=== PATIENT | male | born 1950 | race Caucasian/White ===

== ENCOUNTER 2018-05-29 18:06 | Emergency (ER) | payer MEDICARE, OTHER, SELFPAY ==
[2018-05-29 18:07] VITALS: BP 120/70; PULSE 82; RESP 17; TEMP 37.2; O2SAT 97; BMI 28.5
[2018-05-29] MEDS: Morphine 4 MG/ML Syringe IV (19:08)
[2018-05-29] MEDS: Ondansetron 4 MG/2 ML Vial IV (19:08)
[2018-05-29 19:27] LABS: ALB/GLOB Ratio 0.6 RATIO (0.9-2.4); AST(SGOT) 13 U/L (15-37); Alanine Aminotransfer ALT/SGPT 16 U/L (16-61); Albumin, Serum 2.7 g/dL (3.2-5.0); Alkaline Phosphatase 80 U/L (45-117); Anion Gap 6 (5-15); BUN 16 mg/dL (7-18); BUN/Creat Ratio 16.7 RATIO (10-20); Calcium,Total 8.4 mg/dL (8.5-10.1); Chloride 103 mmol/L (98-107); Creatinine, Serum 0.96 mg/dL (0.70-1.30); EST Glomerular Filtration Rate 83 mL/min (>60); Est Glom Filt Rate - Afr Amer 100 mL/min (>60); Estimated Creatinine Clearance 74.99 ml/min; Globulin 4.6 g/dL (2.2-4.2); Glucose 82 mg/dL (74-106); Potassium 3.7 mmol/L (3.5-5.1); Protein, Total 7.3 g/dL (6.4-8.2); Sodium Level 137 mmol/L (136-145)
[2018-05-29 19:31] LABS: Bacteria 0 SEEN /hpf (None Seen); Color, Urine Yellow (Yellow); Glucose, Dipstick Normal (Normal); Ketone-Dipstick Negative (Negative); Leukocyte Esterase-Dipstick Negative /ul (Negative); Mucous, Urine 0 SEEN /hpf (<or=2+); Nitrite-Dipstick Negative (Negative); Occult Blood-Urine Negative /ul (Negative); Protein-Dipstick Negative (Negative); Red Blood Cells-Urine 0 SEEN /hpf (0-5); Squamous Epithelial Cells - UA 0 SEEN /hpf (0-5); Urine Bilirubin Dipstick Negative (Negative); Urine Clarity Clear (Clear); Urine Urobilinogen Normal (Normal); Urine pH 6.5 (5.0 - 8.0); White Blood Cells 0 SEEN /hpf (0-5)
--- NOTE | 2018-05-29 19:51 | ED.VISSUMM ---
- ER Visit Summary Date of Service: 05/29/18 Chief Complaint: Swelling upper extremities History of Present Illness: The patient is a 67 M who has had weakness and pain in his right and left shoulder and pain in his right and left hip. He is unable to elevate his arms above his chest. He denies paresthesia, anesthesia or motor weakness. He states he was recently at the [place] and they performed multiple tests. They believe he has rheumatoid arthritis. He is scheduled to see a steward/stewardess smoke room the first week of June. He denies headache, ocular, visual auditory symptoms. Denies problems with speech or swallowing. He denies cardiac or respiratory symptoms. He denies GI or symptoms. He has not been as active. Physical Examination: Vital signs are normal. HEENT exam is unremarkable. Heart is regular without murmur, gallop or rub. S1 and S2 are normal. Lungs are clear to auscultation with good movement of air bilaterally. Patient has dependent edema/pitting edema of the upper and lower extremity. There is pain with passive range of motion right and left shoulder and right left hip. There is no effusion of the right or left wrist or digits (fingers and thumb bilaterally). There is mild edema of the lower extremities. There is no effusion of his knee or ankle. Patient is alert and oriented ?3. Motor is 5 over 5. Sensory is intact. DTRs are symmetric with no clonus or Babinski sign. Cranial 2 through 12 are intact. Cerebellar testing is normal. Test Results: Comprehensive metabolic panel is marked for calcium of 8.4 and albumin 2.7. Calcium is normal once corrected for low albumin. UA is unremarkable with no proteinuria or hematuria. Emergency Department Course and Treatment: Concern patient has dependent edema. Will obtain conference of metabolic panel to assess albumin and BUN and creatinine. UA was obtained to determine if there is any proteinuria or hematuria indicating renal disease. Treatment Plan: Contact [place] for appointment sooner with steward/stewardess smoke room. and patient requested position in area. He was referred to Dr. Betito Abarca. Disposition: Discharged home with opiate analgesia Impression: 1. Bilateral shoulder and hip pain uncertain etiology 2. Proximal muscle weakness uncertain etiology 3. Dependent edema upper and lower extremities This note was generated with [employer]ation software. It may contain incorrect words, spelling, and punctuation that were not noted in review of the chart prior to signing ED Disposition - Plan for ED Patient: Disposition: Home or Assisted Living Chief Complaint: Edema Instructions: ED Lymphedema Prescriptions: Oxycodone HCl/Acetaminophen [Percocet 5/325] 1 tab PO Q6H PRN PRN 5 Days #20 tab PRN Reason: Pain Referrals: [facility] [Primary Care Provider] - Betito Abarca MD [STAFF PHYSICIAN] - 3-5 Days
--- NOTE | 2018-05-29 20:04 | ED.DCSUM_ITS ---
- ER Visit Summary Date of Service: 05/29/18 Chief Complaint: Swelling upper extremities History of Present Illness: The patient is a 67 M who has had weakness and pain in his right and left shoulder and pain in his right and left hip. He is unable to elevate his arms above his chest. He denies paresthesia, anesthesia or motor weakness. He states he was recently at the [place] and they performed multiple tests. They believe he has rheumatoid arthritis. He is scheduled to see a four corner former machine operator the first week of June. He denies headache, ocular, visual auditory symptoms. Denies problems with speech or swallowing. He denies cardiac or respiratory symptoms. He denies GI or symptoms. He has not been as active. Physical Examination: Vital signs are normal. HEENT exam is unremarkable. Heart is regular without murmur, gallop or rub. S1 and S2 are normal. Lungs are clear to auscultation with good movement of air bilaterally. Patient has dependent edema/pitting edema of the upper and lower extremity. There is pain with passive range of motion right and left shoulder and right left hip. There is no effusion of the right or left wrist or digits (fingers and thumb bilaterally). There is mild edema of the lower extremities. There is no effusion of his knee or ankle. Patient is alert and oriented ?3. Motor is 5 over 5. Sensory is intact. DTRs are symmetric with no clonus or Babinski sign. Cranial 2 through 12 are intact. Cerebellar testing is normal. Test Results: Comprehensive metabolic panel is marked for calcium of 8.4 and albumin 2.7. Calcium is normal once corrected for low albumin. UA is unremarkable with no proteinuria or hematuria. Emergency Department Course and Treatment: Concern patient has dependent edema. Will obtain conference of metabolic panel to assess albumin and BUN and creatinine. UA was obtained to determine if there is any proteinuria or hematuria indicating renal disease. Treatment Plan: Contact [place] for appointment sooner with four corner former machine operator. and patient requested position in area. He was referred to Dr. Betito Abarca. Disposition: Discharged home with opiate analgesia Impression: 1. Bilateral shoulder and hip pain uncertain etiology 2. Proximal muscle weakness uncertain etiology 3. Dependent edema upper and lower extremities This note was generated with [employer] software. It may contain incorrect words, spelling, and punctuation that were not noted in review of the chart prior to signing ED Disposition - Plan for ED Patient: Disposition: Home or Assisted Living Chief Complaint: Edema Instructions: ED Lymphedema Prescriptions: Oxycodone HCl/Acetaminophen [Percocet 5/325] 1 tab PO Q6H PRN PRN 5 Days #20 tab PRN Reason: Pain Referrals: [facility] [Primary Care Provider] - Betito Abarca MD [STAFF PHYSICIAN] - 3-5 Days
[2018-05-29 20:07] VITALS: PULSE 88; RESP 16; O2SAT 100
[2018-05-29 20:16] VITALS: BP 136/80; PULSE 89; RESP 16; O2SAT 100
== END 2018-05-29 20:18 | disposition home or self-care (01) ==
PROVIDERS: Emergency Provider Emergency Medicine
DX: M25.512 Pain in left shoulder (principal); M25.511 Pain in right shoulder; M25.552 Pain in left hip; M25.551 Pain in right hip; R53.1 Weakness; R60.0 Localized edema
CPT/HCPCS: 80053; 81001; 96374; 96375; 99283; A4216; J2405

== ENCOUNTER 2019-06-01 10:20 | Emergency (ER) | payer MEDICARE, OTHER, SELFPAY ==
[2019-06-01 10:21] VITALS: BP 134/78; PULSE 89; RESP 17; TEMP 36.6; O2SAT 96; BMI 29.9
--- NOTE | 2019-06-01 10:49 | ED.DCSUM_ITS ---
History of Present Illness Chief Complaint: Rash Informant: Patient Onset: Days - 5 Context: Gradual Onset Timing: Continuous Narrative: Patient is a 68-year-old male with history of rheumatoid arthritis presenting with a rash to his head. It has been present for 5 days. It is painful. It started to get closer to his left eye which is why he came to the emergency room. Patient suspects it is shingles. He started taking prednisone yesterday which he already had at home. He denies any vision changes but notes that his left eye is been watery. He denies any fever or chills. Patient denies any other complaints at this time. 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 Past Medical History - Allergies and Home Meds Allergies/Adverse Reactions: Allergies No Known Allergies Allergy (Verified 06/01/19 10:21) Primary Care Physician: [facility] [Primary Care Provider] - Past Medical History: - - RA Surgical History: - - back Lives: Spouse/ Significant Other Smoking Status: Never smoker Review of Systems All systems negative except as indicated Eyes: Reports: - - watery left eye Skin: Reports: Rash - left head and forehead Physical Exam Vital Signs/Narrative: Vital Signs Temp Pulse Resp BP Pulse Ox 06/01/19 10:21 97.9 F 89 17 134/78 H 96 Inital Vital Signs reviewed: Yes General: Well nourished, Well developed, No Acute Distress Head: Normocephalic, Atraumatic Eyes: Perrl, EOMI, - - Slit-lamp exam performed with floor seen, patient had uptake at the 5 o'clock position over the iris of the left eye in a clustered pattern 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, no flare appreciated ENT: Moist mucous membranes, No rhinorrhea Neck: Supple, Nontender Cardiovascular: Regular rate, Regular rhythm, No murmurs Respiratory: No distress, CTA bilaterally, Chest nontender Abdomen: Soft, Nontender, Nondistended, Normal bowel sounds Back: Nontender, Normal Inspection Extremities: Nontender, No edema Skin: Normal color, - - Vesicular rash on the left scalp extending from the vertex down to just above the left eyebrow, some of the lesions are scabbed over?this is consistent with shingles Neurological: Alert, Oriented x3, Cranial nerves II-XII grossly intact, Normal Strength, Normal Sensation Psychological: Normal affect, Normal Mood Diagnostic/Tx/Re-eval - Medical Decision Making Valuate for rash as well as water in his left eye. Rashes consistent with shingles. Eye exam with floor seen and slit-lamp does have uptake which is 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s/vesicles. Patient's vision corrected is OS 20/30 and OD 20/25. Discussed with ophthalmology on-call, Dr. Murry who recommends starting patient on valacyclovir as well as azithromycin ointment as well as seen her in the office tomorrow for repeat eye exam to rule out iritis. Patient is agreeable with this. He is given first dose of medications in the em ergency room. Patient is counseled on signs and symptoms requiring return to the emergency room. Patient verbalizes agreement and understand this plan. Patient discharged home in stable and improved condition. ED Disposition - Plan for ED Patient: Disposition: Home or Assisted Living Diagnosis: Shingles rash, Corneal abnormality Instructions: Shingles (Herpes Zoster) Prescriptions: Gabapentin [Neurontin] 300 mg PO BID PRN #20 cap PRN Reason: Pain Score 1-10/10 Prescription Printed Valacyclovir HCl [Valacyclovir] 1,000 mg PO TID #21 tab Prescription Printed Referrals: [facility] [Primary Care Provider] - Annamaria Murry MD [STAFF PHYSICIAN] - Additional Instructions: It is very important that you follow-up with ophthalmology tomorrow for repeat eye exam. Apply ointment to your left eye every 2 hours while awake. Take other medications as prescribed. Return if you have any worsening symptoms.
[2019-06-01] MEDS: Fluorescein 1 MG STRIP 1 STRIP OPHTHALMIC (11:22)
[2019-06-01] MEDS: Acyclovir 800 MG Tablet PO (12:13)
== END 2019-06-01 12:21 | disposition home or self-care (01) ==
PROVIDERS: Emergency Provider Emergency Medicine
DX: B02.9 Zoster without complications (principal); H18.892 Other specified disorders of cornea, left eye; M06.9 Rheumatoid arthritis, unspecified
CPT/HCPCS: 99283

== ENCOUNTER 2020-04-26 15:42 | Observation (INO) | payer MEDICARE, OTHER, SELFPAY ==
[2020-04-26] VITALS (8 sets, daily range): BP systolic 114–139; BP diastolic 69–86; PULSE 60–90; RESP 14–23; TEMP 36.6–36.8; O2SAT 94–98; BMI 28.7; BMI 29.0
--- NOTE | 2020-04-26 16:10 | ED.VIS.GEN ---
History of Present Illness Chief Complaint: Shortness of Breath Informant: Patient, Significant Other Narrative: 69-year-old male with history of rheumatoid arthritis on methotrexate presenting with hypoxia from home. His is a cardiology nurse and was watching his pulse ox dipped into the 80s the night before last. When he talks or moves about his pulse ox will drop down to 90. His symptoms started 2-1/2 weeks ago with body aches all over his body. He thought it was his rheumatoid arthritis. He made appointments with the [place] however they did not test him for COVID?. He continued for the first 3 days to have body aches and then started to have fevers as high as 101.2 which respond to Tylenol and ibuprofen. He developed a cough without production of sputum. The fevers and the cough have been present at that time. He states he was tested on Thursday of the and got his result today. Given that he tested positive and he was hypoxic he presents for evaluation. He denies any chest pain except for when he takes a deep inspiration and he states in the center of his chest. He has been able to eat and drink although this is been slightly diminished. He is making stool and urine. Past Medical History - Allergies and Home Meds Allergies/Adverse Reactions: Allergies No Known Allergies Allergy (Verified 04/26/20 15:43) Prior records reviewed: Yes Past Medical History: - - Rheumatoid arthritis Surgical History: noncontributory, - - back Lives: Spouse/ Significant Other Smoking Status: Never smoker Alcohol: None Drugs: None - Family History Maternal Family History: Reports: - - Arthritis Paternal Family History: Reports: Heart Disease Review of Systems General: Reports: Fever, Malaise Eyes: Denies: Visual changes - bilaterally, Diplopia ENT: Denies: Rhinorrhea, Sore throat Cardiovascular: Reports: Chest pain - With deep inspiration. Denies: Palpitations Respiratory: Reports: Dyspnea, Cough, Dyspnea on exertion. Denies: Sputum Gastrointestinal: Reports: Diarrhea - Lightly loose stools. Denies: Abdominal pain, Nausea, Vomiting Genitourinary: Denies: Dysuria, Hematuria Musculoskeletal: Reports: Myalgias, Arthralgias, Neck pain Skin: Denies: Rash, Abscess Neurological: Denies: Headache, Weakness Physical Exam Vital Signs/Narrative: Vital Signs Temp Pulse Resp BP Pulse Ox 04/26/20 16:00 78 14 98 09/03/20 15:43 97.8 F 90 18 123/86 H 97 General: Well nourished, Acute Distress Head: Normocephalic, Atraumatic Eyes: Perrl, EOMI ENT: Moist mucous membranes, No rhinorrhea Cardiovascular: Regular rate, Regular rhythm, No murmurs Respiratory: No distress, Chest nontender, - - Crackles are heard in all lung brown bilaterally. There is good air movement. No wheezing is present. Abdomen: Soft, Nontender, Nondistended Extremities: Nontender, No edema Skin: Normal color, No rash. Negative for: Cyanosis Neurological: Alert, Oriented x3 Psychological: Normal affect Diagnostic/Tx/Re-eval - Rhythm Strip Rhythm Strip: Sinus Rhythm Rate: 72 - EKG Initial EKG Interpretation: Sinus Rhythm, AV Block - First degree - Medical Decision Making 19-year-old male presenting with chief complaint of hypoxia. 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 She states that he was in the 80s last night. Here in the ER he is anywhere from 90-94 when talking. He describes central chest pain with deep inspiration but has no pain otherwise. He has continued fevers over the last couple of weeks at home which do respond to Tylenol and ibuprofen. He did test positive for COVID?19. It does seem like his had a extended course of symptoms. His lab work-up was fairly normal other than an elevated d-dimer. CTA shows groundglass opacities consistent with COVID?19. He is sinus rhythm with first-degree AV block. There is no signs of ischemia. Given his O2 sats less than 94 and dropping into the low 90s and 80s with concurrent COVID?19 I do believe the patient needs to be admitted for further monitoring. Patient was amenable to this plan. Discussed with hospitalist who admit the patient for treatment. Impression: 1. COVID?19 2. Febrile illness 3. Hypoxia ED Disposition - Plan for ED Patient: Disposition: Acute Care [facility]
--- NOTE | 2020-04-26 16:45 | RAD_ITS ---
STUDY: X-RAY CHEST REASON FOR EXAM: Male, 69 years old. SOB COUGH FOR 2 WEEKS. WITH FEVER. LOW PULSE OX AT HOME PER . SENT BY PCP. TESTED POSITIVE FOR COVID TECHNIQUE: Single AP portable view of the chest. COMPARISON: None. FINDINGS: Moderate lung volumes. Mild patchy pulmonary opacities throughout the right lung and in the left base consistent with multifocal pneumonia. CT scan is recommended. No effusions are seen. Normal size heart. Normal mediastinum and hunter. Normal visualized pulmonary arteries. Normal visualized aortic arch and descending thoracic aorta. Normal visualized thoracic spine. Normal visualized ribs, clavicles, and shoulders. There is no demonstrated abnormality of the visualized soft tissue structures of the upper abdomen. RAD/Chest 1 View (Portable) IMPRESSION: Mild patchy pulmonary opacities throughout the right lung and in the left base consistent with multifocal pneumonia. CT scan is recommended. Electronically Signed: Michael Lorenzo MD at 17:00 EDT , Service support ,
[2020-04-26 16:48] LABS: Absolute Lymphocyte Count 1.25 X10^3/uL (0.83-4.51); Absolute Neutrophil Count 4.2 X10^3/uL (2.0-7.7); Basophil# 0.01 X10^3/uL; Basophil% 0.2 % (0-1); Eosinophil# 0.07 X10^3/uL; Eosinophils% 1.2 % (0-5); Hematocrit 40.5 % (40-54); Hemoglobin 13.7 g/dL (13.0-16.5); Lymphocyte # 1.25 X10^3/ul (4.0); Lymphocyte % 20.9 % (19-41); Mean Corp Hgb Conc 33.8 g/dL (32-36); Mean Corpuscular Hgb 32.5 pg (27.0-32.0); Mean Corpuscular Volume 96.2 fL (80-94); Mean Platelet Vol. 9.7 fl (6.2-12.0); Monocyte# 0.43 X10^3/uL; Monocyte% 7.2 % (0-10); NRBC Flagged by Analyzer 0 % (0-5); Neutrophil # 4.19 X10^3/uL (2.7-7.7); Neutrophil % 70.2 % (47-70); Platelet Count 257 K/mm3 (150-450); RBC Distribution Width CV 13.3 % (11.6-14.6); RBC Distribution Width SD 47.2 fl (35.1-43.9); Red Blood Count 4.21 M/mm3 (4.6-6.2)
[2020-04-26 17:20] LABS: ALB/GLOB Ratio 0.6 RATIO (0.9-2.4); AST(SGOT) 36 U/L (15-37); Alanine Aminotransfer ALT/SGPT 26 U/L (16-61); Albumin, Serum 2.7 g/dL (3.2-5.0); Alkaline Phosphatase 57 U/L (45-117); Anion Gap 6 (5-15); BUN 17 mg/dL (7-18); BUN/Creat Ratio 14.8 RATIO (10-20); Calcium,Total 8.3 mg/dL (8.5-10.1); Chloride 107 mmol/L (98-107); Creatinine, Serum 1.15 mg/dL (0.70-1.30); EST Glomerular Filtration Rate 67 mL/min (>60); Est Glom Filt Rate - Afr Amer 81 mL/min (>60); Estimated Creatinine Clearance 60.83 ml/min; Globulin 4.6 g/dL (2.2-4.2); Glucose 114 mg/dL (74-106); Potassium 4.3 mmol/L (3.5-5.1); Protein, Total 7.3 g/dL (6.4-8.2); Sodium Level 138 mmol/L (136-145)
[2020-04-26 18:04] LABS: D-Dimer Quantitative (DVT/PE) 1.58 FEU/ug/m (0.27-0.49)
--- NOTE | 2020-04-26 18:09 | CT_ITS ---
STUDY: CTA CHEST REASON FOR EXAM: Male, 69 years old. SOB,FEVER X 2 WEEKS,ELEVATED DDIMER RADIATION DOSAGE (If Supplied By Facility): CTDIvol = ( 13.18 ) mGy, DLP = ( 527.10 ) mGycm TECHNIQUE: The examination was performed with the intravenous administration of IV 100mL Isovue-370. Post-processing of the angiographic images was performed, with multiplanar reformation and 3D reconstruction. Individualized dose optimization techniques were used for this CT. COMPARISON: None. FINDINGS: Normal enhancement of the main pulmonary artery and right and left pulmonary arteries. Normal enhancement of the bilateral peripheral pulmonary arteries. There is no demonstrated pulmonary embolism. Normal thoracic aorta and visualized great vessels. There is no demonstrated aortic dissection. Normal heart and pericardium. Normal mediastinum. Normal hilar regions. Normal visualized trachea and bronchi. There is elevation of the right hemidiaphragm. Otherwise the lungs are well expanded. Bilateral widespread groundglass pulmonary infiltrates are seen primarily in the periphery of both lungs and worse on the right. Findings are consistent with nonspecific multifocal pneumonia. No effusions are seen. There are degenerative changes of thoracic spine. There are multiple gallstones. CT/CTA Chest W/WO Contrast IMPRESSION: Normal CTA chest examination, without a demonstrated pulmonary embolism or arterial dissection. There is nonspecific multifocal pneumonia worse on the right. Viral pneumonia is likely. Electronically Signed: Michael Lorenzo MD at 19:05 EDT , Service support ,
--- NOTE | 2020-04-26 19:32 | PCM.HP.STD ---
Problem List (1) Acute respiratory disease due to COVID-19 virus Status: Acute History of Present Illness Date of Admission: 04/26/20 Chief Complaint: Low oxygen saturation The patient is a 69 year old M with a significant history rheumatoid arthritis; and BPH who presents to the emergency department with low oxygen saturation. His who is a cardiology nurse checked patient oxygen saturation at home. His oxygen saturation at home on room air was about 84%. His symptoms started about 2 and half weeks ago with a muscle aches. He has so much a muscle ache to the point that he could not walk. In the last 3 days he developed nonproductive cough; shortness of breath and chest pain with taking deep breaths. At home he had a temperature of 101.2F but not within the last 24 hours.. He did a covid test on Thursday04/23/2020 and the results came back on the day of presentation. His PCP advised him to come to the emergency department. Emergent department doctor reports oxygen saturation of 90 to 94% while at the ED. Past Medical History Medical History: Medical History (Last Reviewed 04/26/20 @ 20:[address] Eren Byrd MD) Rheumatoid arthritis M06.9 Allergies No Known Allergies Allergy (Verified 04/26/20 15:43) Home Medications: Ambulatory Orders Medication Instructions Recorded Acetaminophen [Tylenol Extra 500 - 1,000 mg PO Q6H PRN PRN 04/26/20 Strength] Methotrexate 15 mg PO TU 04/26/20 Tamsulosin HCl [Flomax] 0.4 mg PO DAILY 04/26/20 Surgical History: - - back surgery Lives: Spouse/ Significant Other Smoking Status: Never smoker Tobacco Use: Non-smoker Alcohol: None Drugs: None - *Family History Maternal History Items: - - Arthritis Paternal History Items: Heart Disease Review of Systems Constitutional: Reports: Fever. Denies: Weight Change HEENT: Denies: Head Aches, Sinus Congestion, Sinus Drainage Cardiovascular: Reports: Chest Pain. Denies: Palpitations Respiratory: Reports: Cough, Shortness of Breath Gastrointestinal: Denies: Abdominal Pain, Nausea, Vomiting Genitourinary: Denies: Dysuria Musculoskeletal: Reports: Muscle pain. Denies: Joint Tenderness Skin: Denies: Rash, Wounds Neurological: Denies: Numbness, Tingling, Focal weakness Psychiatric: Denies: Anxiety, Depression, Homicidal Ideations, Suicidal Ideations Hematologic/ Lymphatic: Denies: Easy Bruising, Easy Bleeding VTE Information - Inpt Only VTE Present on Admission: No VTE Mechan Device Prophylaxis: None VTE Pharm Prophylaxis ordered?: Yes Patient Problems: Active and Suspected Problems (Last Updated 04/26/20 @ 20:[address] Eren Byrd MD) Acute respiratory disease due to COVID-19 virus (Acute) - Physical Exam Vitals/I&O's: Vital Signs Temp Pulse Resp BP Pulse Ox 97.8 F 60 17 139/73 H 97 04/26/20 15:43 04/26/20 18:37 04/26/20 18:37 04/26/20 18:37 04/26/20 18:37 Oxygen Delivery Method Room Air Weight: 90.718 kg Body Mass Index (BMI) 28.7 General: Alert, Oriented x3, Cooperative HEENT: Atraumatic, PERRLA, EOMI, Normocephalic Neck: Supple, No JVD, Negative Carotid Bruits Lungs: No rhonchi, No wheeze, Rales Cardiovascular: Regular rate, Normal S1, Normal S2, No murmurs Abdomen: Bowel Sounds Present, Soft, Non Tender Extremities: No edema, Capillary Refill Less than 3 Seconds Skin: No rashes, No breakdown Musculoskeletal: No Tenderness to Palpation of Joints or Extremities Neurological: Cranial nerves II-XII grossly intact Psych/Mental Status: Normal Affect, Appropriate Laboratory Results 04/26/20 16:37: WBC 6.0, RBC 4.21 L, Hgb 13.7, Hct 40.5, MCV 96.2 H, MCH 32.5 H, MCHC 33.8, RDW Std Deviation 47.2 H, RDW Coeff of Marty 13.3, Plt Count 257, MPV 9.7, Immature Gran % (Auto) 0.300, Neut % (Auto) 70.2 H, Lymph % (Auto) 20.9, [place] % (Auto) 7.2, Eos % (Auto) 1.2, Baso % (Auto) 0.2, Absolute Neuts (auto) 4.2, Absolute Lymphs (auto) 1.25, Nucleated RBC % 0 04/26/20 16:37: D-Dimer Quant (PE/DVT) 1.58 H* 04/26/20 16:37: Sodium 138, Potassium 4.3, Chloride 107, Carbon Dioxide 25.0, Anion Gap 6, BUN 17, Creatinine 1.15, Estim Creat Clear Calc 60.83, Est GFR (MDRD) Af Amer 81, Est GFR (MDRD) Non-Af 67, BUN/Creatinine Ratio 14.8, Glucose 114 H, Calcium 8.3 L, Total Bilirubin 0.30, AST 36, ALT 26, Alkaline Phosphatase 57, Troponin I < 0.015, Total Protein 7.3, Albumin 2.7 L, Globulin 4.6 H, Albumin/Globulin Ratio 0.6 L Current Medications Sodium Chloride 1,000 ml/ N/A 1,000 mls @ 45.359 mls/hr IV .[id number] [id number] Stop: 04/27/20 18:11 Last Admin: 04/26/20 19:22 Dose: 0.5 ml/kg/hr, 45.4 mls/hr Documented by: Assessment/Plan All Active Problems (Last Updated 04/26/20 @ 20:[address] Eren Byrd MD) Acute respiratory disease due to COVID-19 virus (Acute) The patient is a 69 year old M with a significant history rheumatoid arthritis; and BPH who presents emergency department with low oxygen saturation; muscle aches; no productive cough; fever but not in the last 24 hours; and chest pain with deep inspiration; reveals on presentation; who also had a positive COVID-19 test and with elevated d-dimer. SARS COVID-19 infection Patient was ambulated and also made to jog in his emergency department room. His lowest oxygen saturation with jogging in the emergency department room was 90%. Will observe patient at the [facility] Covid cohort unit on telemetry. Will check a pro calcitonin. Will check strep pneumonia antigen and Legionella urine antigen to rule out concomitant bacterial pneumonia Actual images of chest x-ray and chest CT was independently reviewed: It showed viral pattern pneumonia bilaterally but more prominent at the right lung. Pro-air PRN for shortness of breath. Dexamethasone p.o. daily ordered. Trend CBC and BMP. Tylenol for fever Mucinex for cough. Enhanced droplet precautions per cardiac protocol Flat [employer] Maker consult and infectious disease consult placed. Rheumatoid arthritis On home methotrexate BPH Flomax continued DVT prophylaxis Lovenox subcutaneous Per COVID protocol OBSV E&M: [id number] Initial observation care L3
--- NOTE | 2020-04-26 19:57 | EKG12_ITS ---
Test Reason : SOB Blood Pressure : / mmHG Vent. Rate : 072 BPM Atrial Rate : 072 BPM P-R Int : 224 ms QRS Dur : 106 ms QT Int : 402 ms P-R-T Axes : 033 -64 036 degrees QTc Int : 440 ms Sinus rhythm with 1st degree A-V block Left axis deviation Low Voltage QRS (Limb Leads) Poor R- wave Progression Abnormal ECG Confirmed by BIRD TEE, STEPHANIE ([id number]), multimedia editor AWILDA LINDO ([id number]) on 05/02/2020 10:23:03 AM Referred By: DAISY Confirmed By:STEPHANIE PANG MD
[2020-04-26] MEDS: dexAMETHasone 4 MG Tablet 6 MG PO (23:10)
[2020-04-26] MEDS: guaiFENesin 1,200 MG Tablet 1200 MG PO (23:10)
[2020-04-26] MEDS: Enoxaparin 30 MG/0.3 ML Syringe SC (23:11)
[2020-04-26 23:35] LABS: Procalcitonin 0.23 ng/mL (0.00-0.09)
[2020-04-27 03:32] VITALS: BP 144/81; PULSE 62; RESP 18; TEMP 36.6; O2SAT 94
[2020-04-27 03:55] LABS: Absolute Lymphocyte Count 0.61 X10^3/uL (0.83-4.51); Absolute Neutrophil Count 4.2 X10^3/uL (2.0-7.7); Eosinophil# 0.01 X10^3/uL; Eosinophils% 0.2 % (0-5); Hemoglobin 13.6 g/dL (13.0-16.5); Lymphocyte # 0.61 X10^3/ul (4.0); Lymphocyte % 12.3 % (19-41); Mean Corpuscular Hgb 32.5 pg (27.0-32.0); Mean Corpuscular Volume 95.5 fL (80-94); Mean Platelet Vol. 9.8 fl (6.2-12.0); Monocyte# 0.11 X10^3/uL; Monocyte% 2.2 % (0-10); NRBC Flagged by Analyzer 0 % (0-5); Neutrophil # 4.21 X10^3/uL (2.7-7.7); Neutrophil % 85.1 % (47-70); Platelet Count 275 K/mm3 (150-450); RBC Distribution Width CV 13.4 % (11.6-14.6); RBC Distribution Width SD 47.3 fl (35.1-43.9); Red Blood Count 4.19 M/mm3 (4.6-6.2)
[2020-04-27 04:00] VITALS: PULSE 60
[2020-04-27 04:09] LABS: Anion Gap 7 (5-15); BUN 16 mg/dL (7-18); BUN/Creat Ratio 15.8 RATIO (10-20); Calcium,Total 8.3 mg/dL (8.5-10.1); Chloride 104 mmol/L (98-107); Creatinine, Serum 1.01 mg/dL (0.70-1.30); EST Glomerular Filtration Rate 77 mL/min (>60); Est Glom Filt Rate - Afr Amer 94 mL/min (>60); Estimated Creatinine Clearance 69.27 ml/min; Glucose 142 mg/dL (74-106); Potassium 4.2 mmol/L (3.5-5.1); Sodium Level 136 mmol/L (136-145)
[2020-04-27 06:00] VITALS: BP 144/81; PULSE 74; RESP 13; TEMP 36.6; O2SAT 93
--- NOTE | 2020-04-27 07:41 | PCM.NTREPORT ---
Nutrition Therapy Report - History Nutrition Services has been consulted to:: Manage nutrient details of diet order Current diet / nutrition support order:: Regular diet - Anthropometric Measurements Height:: 5 ft 10 in Weight:: 91.943 kg Body Mass Index (BMI):: 29.0 - Relevant Labs Relevant Labs:: RBC 4.19 M/mm3 (4.6-6.2) L 04/27/20 03:38 MCV 95.5 fL (80-94) H 04/27/20 03:38 MCH 32.5 pg (27.0-32.0) H 04/27/20 03:38 RDW Std Deviation 47.3 fl (35.1-43.9) H 04/27/20 03:38 Neut % (Auto) 85.1 % (47-70) H 04/27/20 03:38 Lymph % (Auto) 12.3 % (19-41) L 04/27/20 03:38 Absolute Lymphs (auto) 0.61 X10^3/uL (0.83-4.51) L 04/27/20 03:38 D-Dimer Quant (PE/DVT) 1.58 FEU/ug/m (0.27-0.49) H* 04/26/20 16:37 Glucose 142 mg/dL (74-106) H 04/27/20 03:38 Calcium 8.3 mg/dL (8.5-10.1) L 04/27/20 03:38 Albumin 2.7 g/dL (3.2-5.0) L 04/26/20 16:37 Globulin 4.6 g/dL (2.2-4.2) H 04/26/20 16:37 Albumin/Globulin Ratio 0.6 RATIO (0.9-2.4) L 04/26/20 16:37 Procalcitonin 0.23 ng/mL (0.00-0.09) H 04/26/20 22:00 - Assessment Food / Nutrition-Related History:: Spoke w/ pt over telephone d/t pt in isolation d/t covid. 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 UBW: 93.18 kg - wt loss of 1.4% x 1 wk. Pt po intake to be established on ICU. Agreeable to ONS w/ meals for increased nutrition if consumed - does not want chocolate. Gluc likely elevated r/t steroid. - Nutrition Diagnosis Problem / Etiology / Signs & Symptoms (PES):: Pt with suboptimal po intake r/t SARS/Covid 19 infection AEB poor po intake and sig wt loss in last wk Evidence of Malnutrition Exists:: Yes Severe PCM:: Acute Illness - Nutrition Intervention Nutrition Prescription:: [id number] nani / 100-110 gm pro / day - Food / Nutrient Delivery Interventions Summary of nutrition intervention:: Will continue Regular diet. Will provide ONS at meals for increased nutrition if consumed. [ End ] Nutrition support ordered as / adjusted to:: Provide 1/2 cup ensure enlive w/ meals for increased nutrition if consumed Nutrition education provided?: No - MNT Monitoring Further MNT monitoring and evaluation required?: Yes MNT Follow-up in:: 3-5 days - please call RD/LD if questions or concerns at [phone]
[2020-04-27 07:44] VITALS: BMI 29.0
[2020-04-27 08:00] VITALS: PULSE 60
[2020-04-27] MEDS: dexAMETHasone 4 MG Tablet 6 MG PO (08:04)
[2020-04-27] MEDS: guaiFENesin 1,200 MG Tablet 1200 MG PO (08:04)
[2020-04-27] MEDS: Enoxaparin 30 MG/0.3 ML Syringe SC (08:04)
[2020-04-27] MEDS: Tamsulosin HCl 0.4 MG Capsule PO (08:04)
--- NOTE | 2020-04-27 08:28 | CON.PCM_ITS ---
Problem List (1) Acute respiratory disease due to COVID-19 virus Status: Acute (2) Rheumatoid arthritis Status: Acute (3) Methotrexate, snf, current use Status: Chronic Reason for Consult Date of Consultation: 04/27/20 Reason for Consultation: COVID-19 History of Present Illness: The patient is a 69 year old M, with past medical history listed below, who presented [facility] on 04/26/2020 secondary to progressive hypoxia. 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 Patient did have significant desaturation with ambulation while at home. Patient estimates that he has been sick for 14 to 20 days with body aches. Patient had initially a ttributed this to rheumatoid arthritis and had been seen at the OR. Patient continued to have high fevers as high as 101.2 ?F and was treated symptomatically with Tylenol and ibuprofen. Patient has had a dry cough. Patient eventually was tested for COVID-19 3 days ago and was told that this is positive. Patient has noted some slightly decreased appetite, but overall is still urinating and making stool normally. In the ER, patient was noted to be desaturating to 90% with talking and activity. Patient's blood pressure and heart rate were acceptable. Patient did have an elevated d-dimer and a CTA showed groundglass opacities bilaterally. EKG was relatively unremarkable. Patient was admitted to the COVID cohort unit for further evaluation. Since being admitted to the hospital, patient reports no subjective change in overall condition. Patient states that he does feel short of breath with activity, but feels strong enough to go home. Patient denies any history of previous lung disease. Patient did have a short smoking history when he was in [place], but is never been diagnosed with COPD. Patient denies a history of asthma. Patient has had some lower extremity edema, but does not believe this is significantly changed from his baseline. Patient has been taking his methotrexate. Review of systems otherwise negative from a constitutional, HEENT, respiratory, cardiovascular, GI, genitourinary, musculoskeletal, skin, neurologic, psychiatric and hematologic system unless stated above. Past Medical History Past Medical History (Chronic Problems): Chronic Problems (Last Reviewed 04/26/20 @ 20:[address] Eren Byrd MD) Methotrexate, snf, current use (Chronic) Medical History: Medical History (Last Reviewed 04/26/20 @ 20:[address] Eren Byrd MD) Rheumatoid arthritis M06.9 Allergies No Known Allergies Allergy (Verified 04/26/20 15:43) Home Medications: Ambulatory Orders Medication Instructions Recorded Acetaminophen [Tylenol Extra 500 - 1,000 mg PO Q6H PRN PRN 04/26/20 Strength] Methotrexate 15 mg PO TU 04/26/20 Tamsulosin HCl [Flomax] 0.4 mg PO DAILY 04/26/20 Surgical History: - - back surgery Lives: Spouse/ Significant Other Smoking Status: Never smoker Tobacco Use: Non-smoker Alcohol: None Drugs: None - *Family History Maternal History Items: - - Arthritis Paternal History Items: Heart Disease Review of Systems Gastrointestinal: Reports: - - No history of GI bleed Comment: See HPI Patient Problems: Active and Suspected Problems (Last Reviewed 04/26/20 @ 20:[address] Eren Byrd MD) Acute respiratory disease due to COVID-19 virus (Acute) Rheumatoid arthritis (Acute) Objective: All imaging was personally reviewed. CTA of the chest does show areas of bronchiectasis that is right-sided predominant along with bilateral scattered groundglass opacities. Patient does not have a previous pulmonary function test or echocardiogram available for review. - Physical Exam Vitals/I&O's: Vital Signs Temp Pulse Resp BP Pulse Ox 36.6 C 74 13 144/81 H 93 04/27/20 06:00 04/27/20 06:00 04/27/20 06:00 04/27/20 06:00 04/27/20 06:00 Oxygen Flow Rate (L/min) 3 Oxygen Delivery Method Nasal Cannula Weight: 91.943 kg Body Mass Index (BMI) 29.0 Intake and Output for Last 24 Hours 04/25/20 04/26/20 04/27/20 23:59 23:59 23:59 Intake Total 423.11 / 423.11 Output Total 250 / 250 Balance 423.11 / 423.11 -250 / -250 General: Alert, Oriented x3, Cooperative, No apparent distress, Well developed, Well nourished, - - Speaking in full sentences HEENT: Atraumatic, PERRLA, EOMI, Normocephalic, - - No scleral icterus or injection noted Oral: Moist Mucosa, No Gingival or Mucosal Lesions/ Ulcerations Neck: Supple, No JVD, No Nodes, Trachea Midline Lungs: No rhonchi, No wheeze, Diminished, Rales - Bilateral, - - Symmetric expansion Cardiovascular: Regular rate, Regular Rhythm, Normal S1, Normal S2, No murmurs, No rub noted, No Gallop Abdomen: Bowel Sounds Present, Soft, Non Tender, Non-Distended Extremities: No clubbing, No cyanosis, Edema - Trace lower extremity Skin: No rashes, No breakdown Musculoskeletal: No Tenderness to Palpation of Joints or Extremities Lymphatic: No Cervical, Supraclavicular, or Inguinal Adenopathy Neurological: Cranial nerves II-XII grossly intact, Neuro grossly intact, Motor Exam 5/5 strength throughout Psych/Mental Status: Alert and oriented to time, place, person, mood and affect Microbiology Past 72 Hours 04/27/20 03:18 Urine, Clean Catch Streptococcus pneumoniae Antigen (M - Final 04/27/20 03:18 Urine, Clean Catch Legionella Antigen - Final Laboratory Results 04/26/20 16:37: WBC 6.0, RBC 4.21 L, Hgb 13.7, Hct 40.5, MCV 96.2 H, MCH 32.5 H, MCHC 33.8, RDW Std Deviation 47.2 H, RDW Coeff of Marty 13.3, Plt Count 257, MPV 9.7, Immature Gran % (Auto) 0.300, Neut % (Auto) 70.2 H, Lymph % (Auto) 20.9, [place] % (Auto) 7.2, Eos % (Auto) 1.2, Baso % (Auto) 0.2, Absolute Neuts (auto) 4.2, Absolute Lymphs (auto) 1.25, Nucleated RBC % 0 04/26/20 16:37: D-Dimer Quant (PE/DVT) 1.58 H* 04/26/20 16:37: Sodium 138, Potassium 4.3, Chloride 107, Carbon Dioxide 25.0, Anion Gap 6, BUN 17, Creatinine 1.15, Estim Creat Clear Calc 60.83, Est GFR (MDRD) Af Amer 81, Est GFR (MDRD) Non-Af 67, BUN/Creatinine Ratio 14.8, Glucose 114 H, Calcium 8.3 L, Total Bilirubin 0.30, AST 36, ALT 26, Alkaline Phosphatase 57, Troponin I < 0.015, Total Protein 7.3, Albumin 2.7 L, Globulin 4.6 H, Albumin/Globulin Ratio 0.6 L 04/26/20 22:00: Procalcitonin 0.23 H 04/27/20 03:38: WBC 5.0, RBC 4.19 L, Hgb 13.6, Hct 40.0, MCV 95.5 H, MCH 32.5 H, MCHC 34.0, RDW Std Deviation 47.3 H, RDW Coeff of Marty 13.4, Plt Count 275, MPV 9.8, Immature Gran % (Auto) 0.200, Neut % (Auto) 85.1 H, Lymph % (Auto) 12.3 L, [place] % (Auto) 2.2, Eos % (Auto) 0.2, Baso % (Auto) 0.0, Absolute Neuts (auto) 4.2, Absolute Lymphs (auto) 0.61 L, Nucleated RBC % 0 04/27/20 03:38: Sodium 136, Potassium 4.2, Chloride 104, Carbon Dioxide 25.0, Anion Gap 7, BUN 16, Creatinine 1.01, Estim Creat Clear Calc 69.27, Est GFR (MDRD) Af Amer 94, Est GFR (MDRD) Non-Af 77, BUN/Creatinine Ratio 15.8, Glucose 142 H, Calcium 8.3 L Current Medications Acetaminophen (Tylenol) 650 mg PO Q6H PRN PRN PRN Reason: Pain Score 1-10/Temp > 100.7 F Albuterol Sulfate (Ventolin Hfa (Sp)) 1 puff INHALATION Q2H PRN PRN PRN Reason: SOB/WHEEZING [facility] Admin: 04/27/20 08:04 Dose: 6 mg Documented by: Enoxaparin Sodium (Lovenox) 30 mg SC BID [facility] Last Admin: 04/27/20 08:04 Dose: 30 mg Documented by: Guaifenesin (Mucinex) 1,200 mg PO BID [facility] Last Admin: 04/27/20 08:04 Dose: 1,200 mg Documented by: Melatonin (Melatonin) 3 mg PO QHS PRN PRN PRN Reason: INSOMNIA Methotrexate (Methotrexate) 15 mg PO [facility] [place]iscellaneous Information (Pocket Chamber) 1 each INHALATION PRN PRN PRN Reason: USE WITH VENTOLIN MDI Ondansetron HCl (Zofran) 4 mg IV Q8H PRN PRN PRN Reason: NAUSEA/VOMITING Sodium Chloride () 10 - 40 ml IV UD PRN PRN Reason: SALINE FLUSH Tamsulosin HCl (Flomax) 0.4 mg PO DAILY ИВАН Last Admin: 04/27/20 08:04 Dose: 0.4 mg Documented by: Clinical Impression(s) from Imaging Studies Chest X-Ray 04/26/20 16:45 IMPRESSION: Mild patchy pulmonary opacities throughout the right lung and in the left base consistent with multifocal pneumonia. CT scan is recommended. Electronically Signed: Michael Lorenzo MD at 17:00 EDT , Service support , Chest CTA 04/26/20 18:09 IMPRESSION: Normal CTA chest examination, without a demonstrated pulmonary embolism or arterial dissection. There is nonspecific multifocal pneumonia worse on the right. Viral pneumonia is likely. Electronically Signed: Michael Lorenzo MD at 19:05 EDT , Service support , Assessment/Plan All Active Problems (Last Reviewed 04/26/20 @ 20:[address] Eren Byrd MD) Acute respiratory disease due to COVID-19 virus (Acute) Rheumatoid arthritis (Acute) RECOMMENDATIONS: 1. Hold on Remdesivir and convalescent serum 2. Consider initiation of Eliquis therapy for 14 to 21 days, p.o. Decadron for 10 days, hold next methotrexate dose 3. Walking oximetry prior to discharge 4. Follow-up in our office in 3 to 4 weeks for PFT and to arrange repeat imaging 5. Supplemental oxygen if necessary IMPRESSIONS: 1. Acute hypoxic respiratory insufficiency secondary to COVID-19 Patient has classic symptoms of COVID-19 along with groundglass opacities on CT scan of the chest. Other differentials would include methotrexate toxicity, rheumatoid lung or atypical pneumonia. Patient does not have a history of previous respiratory illness. There is some data suggesting an increased risk for hypercoagulable complications following COVID-19. Recommend initiation of Eliquis therapy for the next 14 to 21 days. Patient should have repeat imaging in 4 to 6 weeks to ensure resolution of groundglass opacities. Patient should have a walking oximetry and supplemental oxygen can be provided in the short-term if necessary. However, given patient's current status and the fact that he has had symptoms for 2 weeks, patient can likely be discharged from a pulmonary perspective with outpatient follow-up. Okay to continue with symptomatic therapy for fever 2. Advanced age/methotrexate use/rheumatoid arthritis/BPH Complicates care, management, recovery and prognosis. Patient appears to be doing well on current therapy. Likely okay to continue from my perspective. Inpatient E&M: 77887 Init Hosp L2
[2020-04-27 09:41] VITALS: BP 128/51; PULSE 59; RESP 16; TEMP 36.4; O2SAT 95
--- NOTE | 2020-04-27 09:52 | DCINST_ITS ---
- Discharge Diagnoses Current Active Problems: Current Active and Chronic Problems (Last Reviewed 04/26/20 @ 20:[address] Eren Byrd MD) Acute respiratory disease due to COVID-19 virus (Acute) Rheumatoid arthritis (Acute) Methotrexate, assisted, current use (Chronic) You will use the following diet at home:: Regular Your food should be the consistency of: Regular Your liquids should be the consistency of: Regular/Thin Discharge Activity: Return to Normal Activity Call your doctor if you observe: Fever of 101 or Higher, Shortness of breath, Dizziness, Fainting spells, Swelling in the ankles, Chest pain, Increased palpitations (irregular heartbeat) Additional Instructions: Repeat CT chest in 4-6 weeks to make sure there is resolution of your lung findings. Follow-up with pulmonology in 3-4 weeks for PFTs Allergies/Adverse Reactions: Allergies No Known Allergies Allergy (Verified 04/26/20 15:43) Medications to take at Discharge Acetaminophen [Tylenol] 500 - 1,000 mg PO Q6H PRN PRN 04/26/20 Tamsulosin HCl [Flomax] 0.4 mg PO DAILY 04/26/20 Apixaban [Eliquis] 5 mg PO BID #42 tab 04/27/20 Dexamethasone [Decadron] 6 mg PO DAILYCM #15 tab 04/27/20 Methotrexate 15 mg PO TU #0 04/27/20 The following prescriptions were given: Dexamethasone [Decadron] 6 mg PO DAILYCM #15 tab Transmission Status: Pending to [facility] Apixaban [Eliquis] 5 mg PO BID #42 tab Transmission Status: Pending to [facility] Primary Care Physician: [facility] [Primary Care Provider] - Please follow up with your Primary Care Physician in: 3-5 days Test Results: Test results from this visit will be discussed in further detail at your follow- up appointment, if applicable. Please Follow Up With: Davidson Crowder MD When: 3-4 weeks
--- NOTE | 2020-04-27 11:18 | CASEMGMT ---
Pt to be sent home on Eliquis at discharge and med e-scribed to [facility] retail pharmacy. Call to Danyelle in pharmacy and she states that Eliquis card was applied at this time. Pt should only be on a 21 day dose at this time d/t COVID-19. Loni BENZ CM
--- NOTE | 2020-04-27 13:52 | DS.PCM_ITS ---
Discharge Date and Diagnosis Date of Admission: 04/26/20 Date of Discharge: 04/27/20 - Secondary Discharge Diagnosis Chronic Problems: Chronic Problems (Last Reviewed 04/26/20 @ 20:[address] Eren Byrd MD) Methotrexate, local intermodal truck driver, current use (Chronic) Hospital Course and Treatment Imaging Results: Clinical Impression(s) from Imaging Studies Chest X-Ray 04/26/20 16:45 IMPRESSION: Mild patchy pulmonary opacities throughout the right lung and in the left base consistent with multifocal pneumonia. CT scan is recommended. Electronically Signed: Michael Lorenzo MD at 17:00 EDT , Service support , Chest CTA 04/26/20 18:09 IMPRESSION: Normal CTA chest examination, without a demonstrated pulmonary embolism or arterial dissection. There is nonspecific multifocal pneumonia worse on the right. Viral pneumonia is likely. Electronically Signed: Michael Lorenzo MD at 19:05 EDT , Service support , Consults: Pulmonology Operations: None Procedures: None Summary of Care Provided: Per HPI: The patient is a 69 year old M with a significant history rheumatoid arthritis; and BPH who presents to the emergency department with low oxygen saturation. His who is a cardiology nurse checked patient oxygen saturation at home. His oxygen saturation at home on room air was about 84%. His symptoms started about 2 and half weeks ago with a muscle aches. He has so much a muscle ache to the point that he could not walk. In the last 3 days he developed nonproductive cough; shortness of breath and chest pain with taking deep breaths. At home he had a temperature of 101.2F but not within the last 24 hours.. He did a covid test on Thursday04/23/2020 and the results came back on the day of presentation. His PCP advised him to come to the emergency department. Emergent department doctor reports oxygen saturation of 90 to 94% while at the ED. Hospital Course: 1. COVID-19 [id number] male has been having symptoms for about 2-1/2 weeks presents to the hospital after he found out that he tested positive for COVID-19. He was not hypoxic, he desatted to 90% with activity in the ER. He was started on Decadron as well as Eliquis for symptom management and was feeling well today. He says that he had started feeling a little bit better over the last couple days compared to when he first started having symptoms. He had an ambulatory pulse ox test today which demonstrate that he did not need oxygen on discharge. Discussed with him and his that he should not take his next methotrexate dose on this Thursday and should resume it on the following Thursday. He will take Eliquis for about 21 days and dexamethasone for 10 days. I discussed the plan for discharge with him and his , and they both expressed understanding of the risks and benefits of discharge today. Also discussed the need for quarantine for him and people who have come in contact with him. 2. Rheumatoid arthritis, BPH all chronic medical conditions which complicate care. His home medications were continued where appropriate - Physical Exam Vitals/I&O's: Vital Signs Temp Pulse Resp BP Pulse Ox 97.5 F L 59 L 16 128/51 H 95 04/27/20 09:41 04/27/20 09:41 04/27/20 09:41 04/27/20 09:41 04/27/20 09:41 Oxygen Flow Rate (L/min) 3 Oxygen Delivery Method Room Air Weight: 202 lb 11.194 oz Body Mass Index (BMI) 29.0 Intake and Output for Last 24 Hours 04/25/20 04/26/20 04/27/20 23:59 23:59 23:59 Intake Total 423.11 / 423.11 Output Total 250 / 250 Balance 423.11 / 423.11 -250 / -250 General: Alert, Oriented x3, Cooperative, No apparent distress HEENT: Atraumatic, PERRLA, EOMI, Normocephalic Oral: Moist Mucosa Neck: Supple, No JVD Lungs: Normal air movement, Diminished, Rales Cardiovascular: Regular rate, Regular Rhythm, Normal S1, Normal S2, No murmurs Abdomen: Soft, Non Tender Extremities: No edema, Capillary Refill Less than 3 Seconds Skin: No rashes, No breakdown Neurological: Neuro grossly intact, Sensory exam intact to light touch and pain Psych/Mental Status: Normal Affect, Appropriate Microbiology Past 72 Hours 04/27/20 03:18 Urine, Clean Catch Streptococcus pneumoniae Antigen (M - Final 04/27/20 03:18 Urine, Clean Catch Legionella Antigen - Final Laboratory Results 04/26/20 16:37: WBC 6.0, RBC 4.21 L, Hgb 13.7, Hct 40.5, MCV 96.2 H, MCH 32.5 H, MCHC 33.8, RDW Std Deviation 47.2 H, RDW Coeff of Marty 13.3, Plt Count 257, MPV 9.7, Immature Gran % (Auto) 0.300, Neut % (Auto) 70.2 H, Lymph % (Auto) 20.9, [place] % (Auto) 7.2, Eos % (Auto) 1.2, Baso % (Auto) 0.2, Absolute Neuts (auto) 4.2, Absolute Lymphs (auto) 1.25, Nucleated RBC % 0 04/26/20 16:37: D-Dimer Quant (PE/DVT) 1.58 H* 04/26/20 16:37: Sodium 138, Potassium 4.3, Chloride 107, Carbon Dioxide 25.0, Anion Gap 6, BUN 17, Creatinine 1.15, Estim Creat Clear Calc 60.83, Est GFR (MDRD) Af Amer 81, Est GFR (MDRD) Non-Af 67, BUN/Creatinine Ratio 14.8, Glucose 114 H, Calcium 8.3 L, Total Bilirubin 0.30, AST 36, ALT 26, Alkaline Phosphatase 57, Troponin I < 0.015, Total Protein 7.3, Albumin 2.7 L, Globulin 4.6 H, Albumin/Globulin Ratio 0.6 L 04/26/20 22:00: Procalcitonin 0.23 H 04/27/20 03:38: WBC 5.0, RBC 4.19 L, Hgb 13.6, Hct 40.0, MCV 95.5 H, MCH 32.5 H, MCHC 34.0, RDW Std Deviation 47.3 H, RDW Coeff of Marty 13.4, Plt Count 275, MPV 9.8, Immature Gran % (Auto) 0.200, Neut % (Auto) 85.1 H, Lymph % (Auto) 12.3 L, [place] % (Auto) 2.2, Eos % (Auto) 0.2, Baso % (Auto) 0.0, Absolute Neuts (auto) 4.2, Absolute Lymphs (auto) 0.61 L, Nucleated RBC % 0 04/27/20 03:38: Sodium 136, Potassium 4.2, Chloride 104, Carbon Dioxide 25.0, Anion Gap 7, BUN 16, Creatinine 1.01, Estim Creat Clear Calc 69.27, Est GFR (MDRD) Af Amer 94, Est GFR (MDRD) Non-Af 77, BUN/Creatinine Ratio 15.8, Glucose 142 H, Calcium 8.3 L Discharge Activity: Return to Normal Activity Call your doctor if you observe: Fever of 101 or Higher, Shortness of breath, Dizziness, Fainting spells, Swelling in the ankles, Chest pain, Increased palpitations (irregular heartbeat) Home Medications: Medications to take at Discharge Acetaminophen [Tylenol] 500 - 1,000 mg PO Q6H PRN PRN 04/26/20 Tamsulosin HCl [Flomax] 0.4 mg PO DAILY 04/26/20 Apixaban [Eliquis] 5 mg PO BID #42 tab 04/27/20 Dexamethasone [Decadron] 6 mg PO DAILYCM #15 tab 04/27/20 Methotrexate 15 mg PO TU #0 04/27/20 Following Prescriptions Were Given to Patient: Dexamethasone [Decadron] 6 mg PO DAILYCM #15 tab Transmission Status: Received by [facility] Apixaban [Eliquis] 5 mg PO BID #42 tab Transmission Status: Received by [facility] Physician[facility] [Primary Care Provider] - Please follow up with your Primary Care Physician in: 3-5 days Please Follow Up With: Davidson Crowder MD When: 3-4 weeks Disposition: Home Minutes spent on discharge:: 35 Patient Condition:: Stable Medical Necessity - Tobacco Use Smoking Status: Never smoker Tobacco Use: Non-smoker Meaningful Use Info Meaningful Use Diagnoses (Choose all that apply): None applicable OBSV E&M: 25217 Observation care discharge
== END 2020-04-27 12:20 | disposition home or self-care (01) ==
LOC: ED 16:55 → ICU 19:54
PROVIDERS: Admitting Provider Hospitalist; Emergency Provider Student in an Organized Health Care Education/Training Program; Visit Provider Family Medicine
DX: U07.1 COVID-19 (principal); J12.89 Other viral pneumonia; M06.9 Rheumatoid arthritis, unspecified; N40.0 Benign prostatic hyperplasia without lower urinary tract symptoms; Z79.899 Other long term (current) drug therapy; R09.02 Hypoxemia
CPT/HCPCS: 71045; 71275; 80048; 80053; 84145; 84484; 85025; 85379; 87449; 93005; 96372; 97802; 99218; 99285; J7030; Q9967; G0378

== ENCOUNTER → 2020-05-24 | Outpatient (CLI) | payer MEDICARE, OTHER, SELFPAY ==
[2020-04-27 07:44] VITALS: BMI 29.0
--- NOTE | 2020-05-24 10:46 | RAD_ITS ---
STUDY: X-RAY CHEST REASON FOR EXAM: Male, 69 years old. 1 MONTH POSITIVE COVID WITH PULMONARY COMORBIDITY F/U, NO COMPLAINTS TECHNIQUE: PA and lateral views of the chest. COMPARISON: Comparison is made with prior study dated 04/26/2020. FINDINGS: Since prior study, there has been improved aeration of both lungs. Mild residual changes persist at the lung bases. There is no demonstrated pleural abnormality. Normal size heart. Normal mediastinum and hunter. Normal visualized pulmonary arteries. There is atherosclerotic calcification of the aortic arch with tortuosity. There are diffuse degenerative changes of the visualized thoracic spine. Normal visualized ribs, clavicles, and shoulders. Possible gallstones. RAD/Chest PA and Lateral IMPRESSION: Mildly residual changes are seen at the lung bases. Electronically Signed: Raman Babb, at 12:29 EDT , Service support ,
== END | disposition home or self-care (01) ==
LOC: RAD 10:41
PROVIDERS: Referring Provider Registered Nurse; Visit Provider Registered Nurse
DX: U07.1 COVID-19 (principal); J98.4 Other disorders of lung
CPT/HCPCS: 71046

== ENCOUNTER → 2021-02-20 12:46 | Outpatient (CLI) | payer MEDICARE, OTHER, SELFPAY ==
--- NOTE | 2021-02-20 13:01 | CT_ITS ---
STUDY: LEFT LOWER EXTREMITY CT SCAN REASON FOR EXAM: Male, 70 years old. VARUS DEFORMITY. Presurgical planning. RADIATION DOSAGE (If Supplied By Facility): CTDIvol = ( 18.76 ) mGy, DLP = ( 1439.88 ) mGycm. Individualized dose optimization techniques were used for this CT.? TECHNIQUE: Axial multidetector CT scan of the left lower extremity. Coronal and sagittal reformatted images. COMPARISON: None. FINDINGS: General: No acute fracture, dislocation or cortical destruction. Vascular calcifications. Left hip: Mild/moderate left hip arthrosis. Moderate pubic symphysis arthrosis. Mild sacroiliac joint arthrosis with vacuum phenomenon. Small pelvic enthesophytes. Left knee: Severe joint compartment osteoarthritis with joint space narrowing, subchondral sclerosis, subcortical cysts and osteophytes. Moderate volume joint effusion. Moderate-sized popliteal cyst. Soft tissue swelling. Knee varus orientation. Left ankle: Distal tibial victor m. Moderate/severe tibiotalar arthrosis. Moderate subtalar arthrosis. Mild talonavicular arthrosis. Mild calcaneocuboid arthrosis. Plantar spur. Achilles enthesophyte. CT/Extremity Lower without Contra IMPRESSION: Severe left knee tricompartmental osteoarthritis Left knee moderate volume joint effusion, moderate-sized popliteal cyst with swelling Moderate left hip and ankle osteoarthritis Electronically Signed: Betito Fatima DO at 8:17 EDT Tel , Service support ,
== END ==
PROVIDERS: PCP Family Medicine; Referring Provider Specialist; Visit Provider Specialist
DX: M21.162 Varus deformity, not elsewhere classified, left knee (principal)
CPT/HCPCS: 73700

== ENCOUNTER 2021-03-06 12:32 | Observation (INO) | payer MEDICARE, OTHER, SELFPAY ==
[2021-02-20 13:31] LABS: Absolute Neutrophil Count 4.1 X10^3/uL (2.0-7.7); Basophil# 0.04 X10^3/uL; Basophil% 0.6 % (0-1); Eosinophil# 0.12 X10^3/uL; Eosinophils% 1.7 % (0-5); Hematocrit 43.3 % (40-54); Hemoglobin 14.1 g/dL (13.0-16.5); Lymphocyte % 30.1 % (19-41); Mean Corp Hgb Conc 32.6 g/dL (32-36); Mean Corpuscular Hgb 32.1 pg (27.0-32.0); Mean Corpuscular Volume 98.6 fL (80-94); Mean Platelet Vol. 10.8 fl (6.2-12.0); Monocyte# 0.56 X10^3/uL; NRBC Flagged by Analyzer 0 % (0-5); Neutrophil # 4.14 X10^3/uL (2.7-7.7); Neutrophil % 59.3 % (47-70); Platelet Count 231 K/mm3 (150-450); RBC Distribution Width CV 13.5 % (11.6-14.6); RBC Distribution Width SD 48.1 fl (35.1-43.9); Red Blood Count 4.39 M/mm3 (4.6-6.2)
--- NOTE | 2021-02-21 10:36 | PCM.HP.BLA ---
History and Physical History and Physical [facility] Patient Name: Ashwin Richardson : 1950 From: CLAUDIA LONGORIA PA-C DATE OF SURGERY: 03/06/2021 SCHEDULED PROCEDURE: left total knee arthroplasty HISTORY OF PRESENT ILLNESS: Preoperative history and physical exam was performed on February 20, 2021. This is a 70-year-old male who is been having ongoing pain in the left knee for several years. Patient's pain as being constant. Pain is increased with going up and down stairs and walking. His pain is located over the medial and lateral joint line. Patient states the pain does occasionally wake him at night. He has tripped/stumbled due to the knee pain. He feels unsafe walking down hills. Patient reports having a previous left knee arthroscopy 40 years ago. Patient has attempted rest, ice, heat, elevation with no relief in symptoms. He has had previous corticosteroid injections in bilateral knees which only gave him temporary relief. He has also been using Excedrin with no relief in symptoms. Patient has a medical history pertinent for enlarged prostate and history of anemia. Has been diagnosed with rheumatoid arthritis in which she is taking methotrexate. Also has history of a 2 level fusion in the lumbar spine. We are obtaining surgical clearance from the primary care physician Dr. Chinmay Ordaz. After failing conservative measures and discussing all treatment options with Dr. Phillip Ordaz, the patient does wish to proceed with a left total knee arthroplasty. Patient denies any recent chest pain, shortness of breath, fevers chills, recent infections. REVIEW OF SYSTEMS: ROS: Const: Denies change in appetite, fever and weight change. CV: Reports irregular heartbeat, but denies chest pain and heart murmur. Resp: Denies cough, pneumonia, shortness of breath, tuberculosis and wheezing. GI: Denies constipation, diarrhea, heartburn, nausea, rectal itching, bloody stools and vomiting. : Denies incontinence. Musculo: Reports leg swelling, pain, trouble walking and weakness. Skin: Reports history of shingles and tattoo, but denies Raynaud's. Neuro: Reports difficulty with balance but denies ambulatory dysfunction, dizziness, numbness/tingling and tremor. Psych: Denies anxiety, insomnia and stress. Moreno/Lymph: Reports anemia and bleeding/bruising tendency, but denies past transfusion. Reviewed and updated. PAST MEDICAL HISTORY: Advance Care Plan: Other Directive, LIVING WILL Effective Date: 12/13/2020 PMH: Medical Problems: Arthritis, Hard of Hearing Covid- 19 - (04/27/2020-04/28/2020) Anemia, Enlarged prostate Accidents: LT Ankle Injury - (1973) Surgical Hx: Spinal Fusion - (2016) Knee Arthroscopy LT - (40 YEARS AGO) Anesthesia Complications: Slow Waking Up Assistive Devices: Dentures, Glasses Reviewed and updated. SOCIAL HISTORY: SH: Marital: .Occupation: Retired.Work Status: Retired.Hand Dominance: Right-handed. Personal Habits: Cigarette Use: Never Smoked Cigarettes.Smokeless Tobacco: Never Used Smokeless Tobacco.E-Cigarette Use: Never used.Alcohol: Denies use.Drug Use: Denies Use.Enjoy Exercising: Never Exercises. Reviewed, no changes. VITALS: Ht: 69.6 Wt: 210lb Wt k.256 BMI: 30.5 BP: 126/72 Pulse: 62 Resp: 10 T: 97.3 T: 36.3C Pain Level: 6 ALLERGIES: No Known Drug Allergy MEDICATIONS: Folic Acid(1000 mcg) daily, Vitamin C daily, Methotrexate 2.5 mg 6 weekly, Citracal +D3 daily, Excedrin Extra Strength 250-250-65 mg 1 tablet by mouth at night as needed for pain., Flomax 0.4 mg 1 by mouth every day PRE-OP EXAM: General appearance:NORMAL Other: Eyes: Conjunctivae and lids: NORMAL Pupils: ERR Ears, Nose, Mouth, and Throat: NORMAL Other: Inspection of lips, teeth and gums: NORMAL Other: Neck: Examination of neck: no masses noted. Respiratory: Assessment of respiratory effort: NORMAL Other: Auscultation of lungs: clear to auscultation no wheezes, rhonchi or rales. Cardiovascular: Auscultation of heart: regular rate and rhythm, no murmurs, gallops or rubs. Exam of carotid arteries: NORMAL Other: Gastrointestinal: Exam of abdomen: soft, nontender, nondistended bowel sounds present. PHYSICAL EXAMINATION: Patient walks with an antalgic gait. Left knee is cool to touch without erythema or signs of infection. Patient has varus alignment which is partially correctable. There is tenderness to palpation over the medial joint line and lateral joint line of the left knee. Range of motion: 0 extension to 105 flexion. Minimal translation with anterior/posterior drawer testing. IMAGING STUDIES: X-rays of the left knee reveal varus alignment with medial joint space narrowing, subchondral sclerosis, osteophyte formation consistent with severe stage IV osteoarthritis. There is also lateral subluxation of the tibia consistent with chronic ACL disruption. IMPRESSION: 1. Severe left knee osteoarthritis 2. Enlarged prostate 3. History of anemia 4. Previous lumbar spinal fusion 2016 PLAN: Dr. Phillip Ordaz did discuss and review with the patient all treatment options including surgical versus nonsurgical options. Patient does wish to proceed with the above-stated procedure. Potential risks, benefits, and complications of the procedure were discussed in detail including but not limited to , infection, nerve and blood vessel damage, persistent pain, numbness, tingling, paresthesias, blood clot, pulmonary embolism, and requirement for possible further surgery. The patient expressed full understanding and has no further questions for the doctor. Patient does agree to proceed with the above-stated procedure and has signed the surgery consent form. We discussed the current risks associated with COVID 19. This does include the risk of exposure while in the hospital. Patient was reassured local hospitals have low infection rates and are taking all necessary precautions to avoid exposure to patients. In addition, we discussed strategies that can be used to help limit exposure including those that limit the patient's time in the hospital. Also using strategies to limit the patient's need for continued inpatient services after being discharged from the hospital. Patient was notified that we will need to comply with any screening or testing the hospital wishes to perform or that surgery may be delayed for any positive results. This dictation was created using voice recognition software. Phonetic and/or grammatical errors may exist. ___ I have re-examined the patient. There are no clinical changes since date of exam. ___ See progress notes for changes. ___ Dictated on admission Date: Time: Signature:
[2021-03-06] VITALS (11 sets, daily range): BP systolic 112–144; BP diastolic 51–83; PULSE 63–86; RESP 16–18; TEMP 36.3–36.6; O2SAT 94–100; BMI 30.2
--- NOTE | 2021-03-06 07:21 | PCM.OPRPT ---
Report of Operation Date of Procedure: 03/06/21 Pre-Operative Diagnosis: Left knee primary osteoarthritis Post-Operative Diagnosis: Left knee primary osteoarthritis Surgery/Procedure Performed:: Left knee minimally invasive robotic assisted total knee replacement Description of Surgical Findings:: Stable knee with good patella tracking. Patient had significant hyperextension. Even after taking a small distal cut patient had hyperextension with balancing. Therefore we elected to build up the distal femur with 5 mm augments. Surgeon: Phillip Ordaz compounder: Brady Greenfield Type of Anesthesia: Spinal Anesthesiologist: Justin Pradhan Special Medications: 2 g Ancef, 1 g TXA at incision, 1 g TXA closure, 10 mg Decadron, joint cocktail (5 mg Duramorph, 30 mL of 0.5% Ropivicaine, 1000 units of epinephrine, 30 mg of Toradol) Specimen's removed: Bony cuts Estimated Blood Loss (mL): 75 Fluids Replaced: 1500 mL crystalloid Description of Procedure: Implants used: 1. Chris size 5 triathlon cruciate retaining distal femoral cemented component with 5 mm augments distally medially and laterally 2. Parker size 6 press-fit tritanium tibial baseplate 3. Chris X3 10 mm CS polyethylene 4. Chris X3 35 mm asymmetric patella Brief history operative indications: 70-year-old M with history of left knee osteoarthritis with radiographic findings with loss of joint space, osteophyte formation and subchondral sclerosis. Failed conservative measures as mentioned in the H&P. Discussion of total knee arthroplasty as well as risk and benefits were discussed the patient including but not limited to blood loss, DVTs, PEs, neurovascular damage, general risk of anesthesia including loss of life, and stiffness or instability were discussed with patient. Patient demonstrated understanding and was able to sign informed consent. Procedure: On the date of procedure patient's left lower extremity was marked in the preoperative area. The patient was then taken back to the operating room where the patient was placed on the table in the supine position. All bony prominences were identified a well-padded. Anesthesia assumed control of the C-spine and airway and remained controlled throughout the remainder of the procedure. A tourniquet was placed on the left upper thigh and the leg was prepped in a sterile fashion. The surgeon then scrubbed at this time .Upon reentering the room left lower extremity was draped in a standard orthopedic fashion. A timeout was then called and everyone agreed upon the side, the site, the procedure to be performed, patient's identity and antibiotics given. Esmarch bandage was used to exsanguinate the extremity and the tourniquet was placed up to 250 mmHg with the knee in flexion. A midline skin incision was made and sharp dissection was taken down through skin subcutaneous tissue and fat. The standard medial parapatellar incision was made and the patella was subluxed laterally. An Appropriate deep MCL release was done and the fat pad was resected. Our attention was then directed to the patella. The patella was everted and a flat resection was made. The knee was then flexed up in 2 femoral pins were placed inside the incision and 2 tibial pins were placed outside the incision in the medial tibia bicortically. Once this was completed the 2 checkpoints in the femur and tibia were placed. Knee was then flexed up and the bony landmarks were registered. Once this was completed knee was taken through range of motion and manually stressed allowing us to a plan for an appropriate tibial cut. The robotic arm was brought into the field sterilely and checkpoint and saw were registered. Based on the patient's deformity the tibial cut was made in 1 degree of varus. At this time the tensioner was then placed in the joint and ligament tension was checked at 90 degrees and full extension. Based on the patient's ligamentous tension appropriate adjustments were made to the operative plan and ligament releases were done. Once we were happy with our operative plan with balanced flexion and extension gaps our attention was directed to the femur. The robot was brought into the field sterilely and registered. Posterior condylar cuts, anterior chamfer cuts and anterior cuts were appropriately made for a size 5 femur. When these were completed the saws were switched out in the distal femoral and posterior chamfer cuts were made. Protecting the soft tissue throughout this time. A size 6 tibial base plate was selected. the knee was flexed to 90 degrees and the soft tissues and posterior osteophytes were removed from the joint. 40 cc of the periarticular injection was injected into the posterior medial corner of the joint. The appropriate trials were then placed on the femur and tibia. A trial polyethylene was trialed to ensure proper balancing and stability of the knee. At this point we were noted to have a significant hyperextension and difference in the flexion extension gaps. This was after taking less than 8 mm of distal femur on original plan. Based on the mismatch we felt lowering the joint line was the most appropriate way to treat this. The cuts were planned for a 5 mm distal femur augment. Robot was brought back in and distal femur was recut. We then retrialed again and were able to get appropriate balancing. The appropriate tibial internal rotation was then marked with a bovie. In order to augment we did need to use a posterior stabilized femur. Posterior stabilized femur box cut was made. Our attention was then directed to the patella. The lug holes were drilled and the patella trial was placed. Patellar tracking was checked and deemed appropriate. Once we were happy lug holes were drilled for the femur and trial components were removed. the tibia was subluxed and pinned into place and the keel was punched and drilled appropriately. Final components were verified and opened, and cement was mixed in a vacuum. Syn[employer] Simplex cement was used. The wound was copiously irrigated with normal saline. When the cement was ready the components were impacted into place starting with the tibia, then cementing the femur and finally cementing the patella. The trial poly component was placed and the knee was placed in full extension. All excess cement was removed in the process. Once the cement had cured the tracking, alignment and balance were verified and a size 10 mm CS polyethylene component was placed. Once the final components were placed a 3-minute dilute Betadine lavage was performed followed by an Irrisept lavage was performed and the wound was copiously irrigated with normal saline solution and the periarticular injection was given. The wound was closed in a layer zamora fashion using #1 vicryl interrupted sutures for the arthrotomy, 2-0 interrupted Vicryl suture for the subcuticular layer and yesi for final skin closure. A sterile compressive dressing was then placed. The patient was then awakened from anesthesia, transferred to the [facility] and transferred to the PACU for recovery. Post op plan DVT ppx: ASA 81mg BID, thigh high compression stockings Follow up: in office in 2 weeks for wound check PT: to start POD #0 at hospital, outpatient PT should be arranged. My physician supply assistant was a vital part of this case. He was important in appropriate retraction during the case, and protection of soft tissues during bony cuts. His intimate knowledge of the case and my steps aided in safe and expedient completion of the procedure as well as appropriate position of the leg during the case. He was also vital in assisting with closure under my direct supervision. Due to the complexity of this case robotic arm was used to assist in the surgery to improve accuracy and clinical outcomes. Complications No intraoperative complications Admit VTE Documentation VTE Present on Admission: No VTE Mechan Device Prophylaxis: SCD's and Thigh High RUDY Hose VTE Pharm Prophylaxis ordered?: Yes
[2021-03-06 09:53] LABS: Magnesium 1.9 mg/dL (1.6-2.6)
[2021-03-06] MEDS: Gabapentin 600 MG Tablet PO (09:58)
[2021-03-06] MEDS: Celecoxib 200 MG Capsule 400 MG PO (09:58)
[2021-03-06] MEDS: Acetaminophen 500 MG Tablet 1000 MG PO ×2 (09:58→22:20)
[2021-03-06] MEDS: Lactated Ringers 1,000 ML 999 ML IV ×2 (10:00→12:45)
[2021-03-06] MEDS: Lactated Ringers 1,000 ML 100 ML IV (10:02)
[2021-03-06 10:21] LABS: International Normalized Ratio 1.1; Partial Thromboplast Time 33.8 Seconds (24.1-36.2); Prothrombin Time (Protime)PT. 13.5 SECONDS (11.7-14.9)
[2021-03-06 10:30] LABS: Bedside Glucose 79 mg/dL (70-110)
[2021-03-06] MEDS: Cefazolin 2 GM in 0.9% Normal Saline 100 ML IV (11:45)
[2021-03-06] MEDS: dexAMETHasone 10 MG/ML Vial IV (11:49)
--- NOTE | 2021-03-06 14:30 | RAD_ITS ---
STUDY: X-RAY - LEFT KNEE REASON FOR EXAM: Male, 70 years old. Post op -- AP and Lateral xray of operative knee in PACU TECHNIQUE: 2 view(s) of the knee. COMPARISON: None. FINDINGS: Normal visualized distal femur. Normal visualized proximal tibia and fibula. Normal proximal tibiofibular articulation. The patient is status post total knee replacement. There is good alignment. Postoperative soft tissue changes. RAD/Knee 1 or 2 Views IMPRESSION: Status post total knee replacement. There is good alignment. Postoperative soft tissue changes. Electronically Signed: Raman Babb MD at 15:09 EDT , Service support ,
[2021-03-06] MEDS: Lactated Ringers 1,000 ML 125 ML IV (15:02)
--- NOTE | 2021-03-06 16:32 | PCM.PN.HOSP ---
Documented by User: Gustabo FAGAN 03/06/21 16:41 Subjective Subjective Patient is a 70-year-old male comfortably resting in bed, alert and oriented x3 recovering from left knee replacement. Denies chest pain, shortness of breath, palpitations, hemoptysis, sputum production, fever, chills, N/V/D. Objective Data Objective Data Vital Signs: Vital Signs Temp Pulse Resp BP Pulse Ox 97.5 F L 72 18 136/69 H 95 03/06/21 15:47 03/06/21 15:47 03/06/21 15:47 03/06/21 15:47 03/06/21 15:47 Oxygen Flow Rate (L/min) 6 Oxygen Delivery Method Room Air Weight: 210 lb 12.191 oz Body Mass Index (BMI) 30.2 Intake & Output: Intake and Output for Last 24 Hours 03/04/21 03/05/21 03/06/21 23:59 23:59 23:59 Intake Total 3564.67 / 3564.67 Balance 3564.67 / 3564.67 Lab / Micro Data Result Diagrams: 02/20/21 12:51 Labs: Laboratory Results - last 24 hr 03/06/21 09:35: PT 13.5, INR 1.1, APTT 33.8 03/06/21 09:35: Magnesium 1.9 03/06/21 09:49: POC Glucose 79 Micro: Microbiology 03/05/21 09:36 Nasal Secretion SARS-CoV-2 Antigen (Rapid) - Final 02/20/21 12:51 Swab (Method) Nasal Screen MRSA/MSSA - Final Radiography Diagnostic Testing: Radiology Impression Knee X-Ray 03/06/21 14:30 IMPRESSION: Status post total knee replacement. There is good alignment. Postoperative soft tissue changes. Electronically Signed: Raman Babb MD at 15:09 EDT , Service support , Physical Exam Const alert, oriented x3 and no apparent distress HEENT head/scalp atraumatic and moist oral mucous membranes Head and Scalp: normocephalic Eyes EOMs intact bilaterally and conjunctivae normal Neck no lymphadenopathy, supple and no JVD Resp normal respiratory effort, no retractions, no use of accessory muscles and clear to auscultation bilaterally Cardio regular rate, regular rhythm, no murmurs and no JVD GI normal to inspection, nondistended, normoactive bowel sounds, soft to palpation and non-tender Extremity normal to inspection, full ROM and no clubbing, cyanosis or edema Skin no rashes or lesions noted, no wounds, skin turgor normal and no jaundice Neuro CN's II-XII intact bilaterally Psych affect normal Assessment & Plan Assessment/Plan (1) Rheumatoid arthritis: (2) Unilateral primary osteoarthritis, left knee: PLAN: Patient is a 70-year-old male who presents to the hospital medicine team on consult from orthopedic surgery status post left knee minimally invasive robotic assisted total knee replacement for left knee primary osteoarthritis. 1) rheumatoid arthritis Continue methotrexate. 2) enlarged prostate Continue Flomax 3)Left knee primary osteoarthritis status post left minimally invasive robotic assisted total knee replacement. Management per Orthopedics. Patient seen by Gustabo Honeycutt PA-C, under the supervision of Dr. Albert. Documented by User: Dr. Zenon Albert DO 03/06/21 18:43 Objective Data Lab / Micro Data Result Diagrams: 02/20/21 12:51 Charges/Coding Addendum Addendum: Patient was seen and examined today independently of Gustabo Honeycutt, [facility] service was consulted for medical management on this patient who underwent a left knee replacement. Chronic medical problems include rheumatoid arthritis. Patient has no complaints of any chest pain or shortness of breath the time my examination, he is postop at this time. On examination he appeared in good health and spirits. Vital signs as documented. Skin warm and dry and without overt rashes. Neck without JVD, neck was supple, trachea midline, thyroid was normal. Lungs clear bilaterally, normal air movement was noted. Heart exam notable for regular rhythm, normal sounds and absence of murmurs, rubs or gallops. Abdomen unremarkable and without evidence of organomegaly, masses, or abdominal aortic enlargement. Bowel sounds are present, abdomen is not distended. Extremities-there is a knee immobilizer on the patient's left knee, no cyanosis was noted, no clubbing was noted. Neuro: Cranial nerves II through XII are grossly intact, no focal motor deficits were noted, sensation to light touch and pinprick intact, motor exam 5/5 throughout. Psych: Patient is alert and oriented x3, he does not appear anxious or depressed, he does not appear agitated. I have reviewed Gustabo Honeycutt's progress note including his medical assessment and plan of care and endorse it. Visit Charges Inpatient E&M: 35746 Subs Hosp L2
[2021-03-06] MEDS: oxyCODONE 5 MG Tablet PO ×2 (18:17→22:21)
[2021-03-06] MEDS: Folic Acid 1 MG Tablet PO (18:19)
[2021-03-06] MEDS: Senna/Docusate Sodium 1 Tablet 2 TABLET PO ×2 (18:19→22:21)
[2021-03-06] MEDS: Famotidine 20 MG Tablet PO (18:19)
[2021-03-06] MEDS: Ensure Surgery 237 ML LIQUID PO (18:20)
[2021-03-06] MEDS: Calcium Carb/Vitamin D 1 TABLET Tablet PO ×2 (18:22→22:21)
[2021-03-06] MEDS: Tamsulosin HCl 0.4 MG Capsule PO (22:21)
[2021-03-06] MEDS: Cefazolin 1 GM/50 ML BAG IV (22:21)
[2021-03-06] MEDS: Aspirin 81 MG TAB.CHEW PO (22:21)
[2021-03-06] MEDS: 0.9% Saline Lock 10 ML Syringe IV (22:28)
[2021-03-07] MEDS: Acetaminophen 500 MG Tablet 1000 MG PO ×2 (04:51→14:37)
[2021-03-07] MEDS: Cefazolin 1 GM/50 ML BAG IV (04:51)
[2021-03-07] MEDS: oxyCODONE 5 MG Tablet PO ×4 (04:51→16:52)
[2021-03-07] MEDS: Calcium Carb/Vitamin D 1 TABLET Tablet PO ×2 (04:51→14:37)
[2021-03-07 05:06] VITALS: BP 110/58; PULSE 58; RESP 16; TEMP 36.4; O2SAT 96
[2021-03-07 06:24] LABS: Hematocrit 39.5 % (40-54); Hemoglobin 13.1 g/dL (13.0-16.5); Mean Corp Hgb Conc 33.2 g/dL (32-36); Mean Corpuscular Hgb 32.6 pg (27.0-32.0); Mean Corpuscular Volume 98.3 fL (80-94); Mean Platelet Vol. 10.4 fl (6.2-12.0); Platelet Count 233 K/mm3 (150-450); RBC Distribution Width CV 13.4 % (11.6-14.6); RBC Distribution Width SD 47.9 fl (35.1-43.9); Red Blood Count 4.02 M/mm3 (4.6-6.2); White Blood Count 18.4 K/mm3 (4.4-11.0)
[2021-03-07 06:54] LABS: Anion Gap 7 (5-15); BUN 21 mg/dL (7-18); BUN/Creat Ratio 17.1 RATIO (10-20); Calcium,Total 8.8 mg/dL (8.5-10.1); Chloride 105 mmol/L (98-107); Creatinine, Serum 1.23 mg/dL (0.70-1.30); EST Glomerular Filtration Rate 61 mL/min (>60); Est Glom Filt Rate - Afr Amer 74 mL/min (>60); Estimated Creatinine Clearance 56.05 ml/min; Glucose 136 mg/dL (74-106); Potassium 3.7 mmol/L (3.5-5.1); Sodium Level 140 mmol/L (136-145)
[2021-03-07 07:50] VITALS: BP 106/56; PULSE 66; RESP 16; TEMP 36.6; O2SAT 96
[2021-03-07] MEDS: Famotidine 20 MG Tablet PO (08:04)
[2021-03-07] MEDS: Aspirin 81 MG TAB.CHEW PO (08:05)
[2021-03-07] MEDS: Senna/Docusate Sodium 1 Tablet 2 TABLET PO (08:05)
[2021-03-07] MEDS: Folic Acid 1 MG Tablet PO (08:05)
[2021-03-07] MEDS: Ensure Surgery 237 ML LIQUID PO ×2 (08:09→12:45)
--- NOTE | 2021-03-07 10:29 | PN.HOSP_ITS ---
Documented by User: Celine Christensen NP, [employer] EXPERT-C 03/07/21 10:40 Subjective Subjective Patient seen and examined. Denies significant pain. Denies other symptoms or complaints. Stable for discharge home from a medical standpoint. Objective Data Objective Data Vital Signs: Vital Signs Temp Pulse Resp BP Pulse Ox 97.9 F 66 16 106/56 L 96 03/07/21 07:50 03/07/21 07:50 03/07/21 07:50 03/07/21 07:50 03/07/21 07:50 Oxygen Flow Rate (L/min) 6 Oxygen Delivery Method Room Air Weight: 210 lb 12.191 oz Body Mass Index (BMI) 30.2 Intake & Output: Intake and Output for Last 24 Hours 03/05/21 03/06/21 03/07/21 23:59 23:59 23:59 Intake Total 4414.67 / 4414.67 50 / 50 Output Total 300 / 300 1200 / 1200 Balance 4114.67 / 4114.67 -1150 / -1150 Lab / Micro Data Result Diagrams: 03/07/21 06:14 03/07/21 06:14 Labs: Laboratory Results - last 24 hr 03/06/21 09:49: POC Glucose 79 03/07/21 06:14: WBC 18.4 H, RBC 4.02 L, Hgb 13.1, Hct 39.5 L, MCV 98.3 H, MCH 32.6 H, MCHC 33.2, RDW Std Deviation 47.9 H, RDW Coeff of Marty 13.4, Plt Count 2 33, MPV 10.4 03/07/21 06:14: Sodium 140, Potassium 3.7, Chloride 105, Carbon Dioxide 28.0, Anion Gap 7, BUN 21 H, Creatinine 1.23, Estim Creat Clear Calc 56.05, Est GFR (MDRD) Af Amer 74, Est GFR (MDRD) Non-Af 61, BUN/Creatinine Ratio 17.1, Glucose 136 H, Calcium 8.8 Micro: Microbiology 03/05/21 09:36 Nasal Secretion SARS-CoV-2 Antigen (Rapid) - Final 02/20/21 12:51 Swab (Method) Nasal Screen MRSA/MSSA - Final Radiography Diagnostic Testing: Radiology Impression Knee X-Ray 03/06/21 14:30 IMPRESSION: Status post total knee replacement. There is good alignment. Postoperative soft tissue changes. Electronically Signed: Raman Babb MD at 15:09 EDT , Service support , Physical Exam Const alert, oriented x3 and no apparent distress Orientation / Consciousness: awake, oriented to person, oriented to place and oriented to time HEENT normocephalic and moist oral mucous membranes Eyes PERRL, EOMs intact bilaterally and conjunctivae normal Neck no lymphadenopathy Resp normal respiratory effort and clear to auscultation bilaterally Cardio regular rate, regular rhythm and no murmurs Peripheral Pulses: pulses 2+ throughout GI normal to inspection, nondistended, normoactive bowel sounds, non-tender and no n-distended Extremity normal to inspection Skin no rashes or lesions noted Skin Narrative: Left knee dressing intact Lesions: no lesions Rashes: no rashes Trauma: no lacerations or abrasions Neuro CN's II-XII intact bilaterally, no focal motor deficits, no sensory deficits noted and deep tendon reflexes 2+ bilaterally Psych mental status grossly normal and affect normal Assessment & Plan Assessment/Plan (1) Methotrexate, continuous churn buttermaker, current use: (2) Unilateral primary osteoarthritis, left knee: PLAN: 1. Rheumatoid arthritis-takes methotrexate weekly on Thursday, dose prior to surgery held. May resume at discharge. 2. Left knee primary osteoarthritis status post left total knee replacement- management per Ortho. 3. BPH-on Flomax. DVT prophylaxis- per ortho This patient was seen by Celine Christensen, KELLEY-C under the supervision of Dr. Albert. Documented by User: Dr. Zenon Albert, 03/07/21 15:01 Objective Data Lab / Micro Data Result Diagrams: 03/07/21 06:14 03/07/21 06:14 Charges/Coding Addendum Addendum: Patient was seen and examined today independently of Celine Christensen, he has no complaints of any shortness of breath or chest discomfort, the plan from Ortho is to discharge him home today. I cautioned the patient about continuing to take Excedrin for pain, I instructed him that it would be far safer to use ibuprofen or Aleve on a chronic basis than Excedrin. Patient understands this. On examination he appeared in good health and spirits. Vital signs as documented. Skin warm and dry and without overt rashes. Neck without JVD, neck was supple, trachea midline, thyroid was normal. Lungs clear bilaterally, normal air movement was noted. Heart exam notable for regular rhythm, normal sounds and absence of murmurs, rubs or gallops. Abdomen unremarkable and without evidence of organomegaly, masses, or abdominal aortic enlargement. Bowel sounds are present, abdomen is not distended. Extremities-left knee has a knee immobilizer in place and was not examined, no cyanosis was noted, no clubbing was noted. Neuro: Cranial nerves II through XII are grossly intact, no focal motor deficits were noted, sensation to light touch and pinprick intact, motor exam 5/5 throughout. Psych: Patient is alert and oriented x3, he does not appear anxious or depressed, he does not appear agitated. I have reviewed Celine Fermin's progress note including her medical assessment and plan of care and endorse it. Visit Charges Inpatient E&M: 39504 Subs Hosp L2
--- NOTE | 2021-03-07 10:36 | PCM.PN.ORT ---
Subjective Subjective The patient was sitting in bedside chair upon examination. Patient denies any chest pain, shortness of breath, dizziness, lightheadedness, nausea or vomiting, or calf pain. Pain is controlled on medications. No adverse overnight events. Overall patient is doing very well. Patient had his first physical therapy and tolerated this well. Plan is for patient to go home today. Objective Data Objective Data Vital Signs: Vital Signs Temp Pulse Resp BP Pulse Ox 97.9 F 66 16 106/56 L 96 03/07/21 07:50 03/07/21 07:50 03/07/21 07:50 03/07/21 07:50 03/07/21 07:50 Oxygen Flow Rate (L/min) 6 Oxygen Delivery Method Room Air Weight: 95.6 kg Body Mass Index (BMI) 30.2 Intake & Output: Intake and Output for Last 24 Hours 03/05/21 03/06/21 03/07/21 23:59 23:59 23:59 Intake Total 4414.67 / 4414.67 50 / 50 Output Total 300 / 300 1200 / 1200 Balance 4114.67 / 4114.67 -1150 / -1150 Lab / Micro Data Result Diagrams: 03/07/21 06:14 03/07/21 06:14 Labs: Laboratory Results - last 24 hr 03/07/21 06:14: WBC 18.4 H, RBC 4.02 L, Hgb 13.1, Hct 39.5 L, MCV 98.3 H, MCH 32.6 H, MCHC 33.2, RDW Std Deviation 47.9 H, RDW Coeff of Marty 13.4, Plt Count 233, MPV 10.4 03/07/21 06:14: Sodium 140, Potassium 3.7, Chloride 105, Carbon Dioxide 28.0, Anion Gap 7, BUN 21 H, Creatinine 1.23, Estim Creat Clear Calc 56.05, Est GFR (MDRD) Af Amer 74, Est GFR (MDRD) Non-Af 61, BUN/Creatinine Ratio 17.1, Glucose 136 H, Calcium 8.8 Micro: Microbiology 03/05/21 09:36 Nasal Secretion SARS-CoV-2 Antigen (Rapid) - Final 02/20/21 12:51 Swab (Method) Nasal Screen MRSA/MSSA - Final Radiography Diagnostic Testing: Radiology Impression Knee X-Ray 03/06/21 14:30 IMPRESSION: Status post total knee replacement. There is good alignment. Postoperative soft tissue changes. Electronically Signed: Raman Babb MD at 15:09 EDT , Service support , Physical Exam Narrative Vital signs stable and afebrile. Patient is able to plantarflex and dorsiflex actively. Sensation is intact to light touch to saphenous, sural, superficial and deep peroneal, and tibial distribution. Dressings are clean dry and intact. Negative Homans bilaterally, negative signs and symptoms of DVT. Const alert, oriented x3 and no apparent distress Assessment & Plan Assessment/Plan (1) History of total left knee replacement: PLAN: 1. S/P left total knee arthroplasty POD #1 2. Continue Pain Medications: Tylenol, oxycodone, and meloxicam 3. DVT Prophylaxis: Take 81 mg aspirin twice daily for 4 weeks postoperatively for DVT prophylaxis 4. PT/OT: Weightbearing as tolerated 5. H & H: 13.1/39.5, asymptomatic. Postoperative anemia secondary to acute blood loss from surgery without any intra operative complications. 6. Reactive leukocytosis: Currently 18.4, afebrile. Patient did receive Decadron intraoperatively 7. Continue postoperative medical management per medicine 8. Encouraged Incentive Spirometry 9. Disposition: Plan will be for discharge home today after physical therapy this afternoon. Prescriptions will be E scribed to [facility] pharmacy. Patient has outpatient physical therapy established. He will follow-up per postop instructions. Patient is able to resume his methotrexate as prescribed I have reviewed the [place] Automated Rx Reporting System (OARRS) report for this patient for refill pattern and other prescriber involvement as part of the appropriate surveillance for the provision of acute and chronic controlled medications. The report was requested and reviewed on the date of this entry and was considered in the prescribing process.
--- NOTE | 2021-03-07 10:45 | DCINST_ITS ---
Discharge Instructions Diet Discharge Diet: No restrictions Activity Discharge Activity: May Not Drive (while taking narcotic pain medications.) May shower in (days): 1 (Please turn dressing away from water. Okay to get wet as long as dressing is intact to skin.) Ice area for (Minutes): 20 (Every 1-2 hours while awake[address] place barrier between the skin and ice pack.) Weight Bearing Status: Weight bearing as tolerated Keep extremity elevated above heart level: Operative Extremity Dressing / Incision Call your doctor if your incision/area has: Continuous Slow Oozing, Sudden Increased Bleeding, Increased Pain/ Swelling, Increased Redness and Foul Smelling Discharge Call your doctor if you observe: Fever of 101 or Higher, Coldness, Increased Pain, Numbness or Tingling, Change in Color, Shortness of breath, Chest pain, Calf discomfort and Uncontrolled pain Remove Dressing in: 4 days (Okay to remove dressing on March 11, 2021) Additional Dressing/Incision Instructions:: Follow [facility] Post-op Instructions. Once postoperative dressing has been removed only use gentle soap and water over the incision. Do not use any ointments, Neosporin, salves, alcohol pads over the incision for 6 weeks postoperatively. Do not submerge underwater for 6 weeks postoperatively. Continue with RUDY hose/elastic stockings for 2 weeks postoperatively. May remove at nighttime but needs to be placed back on the leg during the day. Do NOT use alcohol with narcotic pain medication. Do NOT make important decisions while taking narcotic medication. If you have problems with taking your medication (rash, itching, nausea, etc.) call the offi ce at once. Follow Up Care Test Results: Test results from this visit will be discussed in further detail at your follow-up appointment, if applicable. Discharge Plan Admission Admit Date/Time: 03/06/21 12:32 Attending Provider: Phillip Ordaz Primary Care Provider: Chinmay Ordaz Consulting Providers: Zenon Albert Discharge Orders/Prescriptions Prescriptions: New acetaminophen 500 mg Tablet 1,000 mg PO TID Qty: 100 RF: 0 aspirin 81 mg tablet,delayed release (DR/EC) 81 mg PO BID Qty: 60 RF: 0 meloxicam 7.5 mg Tablet 7.5 mg PO BID Qty: 60 RF: 0 famotidine 20 mg Tablet 20 mg PO DAILY Qty: 30 RF: 0 oxycodone 5 mg Tablet 5 - 10 mg PO Q4H PRN PRN (Reason: Pain Score 4-10) 5 Days Qty: 60 RF: 0 sennosides-docusate sodium [Stool Softener-Stimulant Laxat] 8.6-50 mg Tablet 2 tab PO BID Qty: 14 RF: 0 Continued tamsulosin 0.4 MG capsule 0.4 mg PO QHS RF: 0 ascorbic acid (vitamin C) [Vitamin C] 500 mg Tablet,Chewable 500 mg PO DAILY RF: 0 folic acid 1 mg Tablet 1 mg PO DAILY RF: 0 calcium citrate-vitamin D3 [Citracal + D Maximum] 315 mg-6.25 mcg (250 unit) Tablet 1 tab PO TID RF: 0 methotrexate sodium 2.5 MG tablet 15 mg PO MO RF: 0 Discontinued Excedrin Extra Strength 250-250-65 mg Tablet 1 tab PO Q6H PRN (Reason: Pain) RF: 0 Referrals / Follow Up: Physical,Therapy [Other] - 03/11/21 9:00 am Chinmay Ordaz MD [Primary Care Provider] - Brady Greenfield PA-C [PHYSICIAN OPERATOR [employer]] - 03/20/21 9:45 am Disposition Disposition (needs filled in before D/C Order can be placed): Home, Self Care
--- NOTE | 2021-03-07 12:00 | CASEMGMT ---
RN BRONSON ADOBE LAYER CM to room to meet with patient for initial transition planning/care coordination assessment. TUYET DOBSON introduced self and role at [facility]. Pt voices understanding and consents to assessment at this time. Pt sitting up in recliner chair in no distress at this time. , Iva, in room visiting. Pt is A/O at this time and answers all questions appropriately. Care providers, pharmacy, and demographics verified/updated at this time. PCP: [facility] [place] Specialists: Dr Ordaz--ortho. Dr Garay the [place]-for arthritis Preferred Pharmacy: [facility] Retail Insurance: [facility], [employer], [place] Prescription Benefit: [place] only Living Will/HPOA: Has both LW and HPOA, who is his , Iva LNOK: , Iva. Living Arrangements: Lives w/his , Iva, in raised ranch-style home. Independent w/ADL's. Transportation: Pt states drives self and states no transportation concerns at this time. also drives. Pt's dtr and son-in-law taking pt home today @ discharge. DME: States has the following DME: [facility], Lift chair Pt states no need for further DME at this time. HHC/SNF: no history of either. Pt wishes to go to [facility] @ discharge. Has appt scheduled for 03/11 @ 0900 and he/ are aware of this appt. Pt wishes to return home and states has no concerns with going home at time of discharge. CM to follow for any further discharge planning/needs. Pt/ voice no further concerns/needs at this time. Advised them to ask for CM if any further questions/concerns/needs arise. They voice understanding. [facility]Z form explained re: Observation status for treatment of left total knee arthorplasty. Explained hospitalization will be paid per his insurance policy for Outpatient billing and condition will continue to be evaluated for Inpt necessity. Also let pt know that [facility] sends paper in the billing packet with their phone number if questions arise. Discussed Pharmacy section of PEREZ form and self administered medication guideline. Pt verbalizes understanding and does not have further questions. Form signed, copy made and placed in chart, and original given to pt. PLAN: Home w/family support and discharge plans in place, and OP therapy @ [facility]. Yessi CALERO RN, CM
[2021-03-07 14:40] VITALS: BP 134/61; PULSE 67; RESP 16; RESP 18; TEMP 36.4; O2SAT 94
== END 2021-03-07 17:45 | disposition home or self-care (01) ==
LOC: SDC 12:33 → MS3 12:33
PROVIDERS: Anesthesiology; Physician Assistant Surgical; Admitting Provider Specialist; PCP Family Medicine; Referring Provider Specialist; Visit Provider Specialist
PROC: 0SRD0JZ Replacement of Left Knee Joint with Synthetic Substitute, Open Approach (ICD-10-PCS; CPT 27447; principal; 2021-03-06 11:15)
DX: M17.12 Unilateral primary osteoarthritis, left knee (principal); N40.0 Benign prostatic hyperplasia without lower urinary tract symptoms; M06.9 Rheumatoid arthritis, unspecified; Z86.16 Personal history of COVID-19; Z98.1 Arthrodesis status; Z79.82 Long term (current) use of aspirin; Z79.899 Other long term (current) drug therapy; Z79.891 Long term (current) use of opiate analgesic; D64.9 Anemia, unspecified; M54.9 Dorsalgia, unspecified; R23.8 Other skin changes; R60.9 Edema, unspecified; H91.90 Unspecified hearing loss, unspecified ear; R06.02 Shortness of breath
CPT/HCPCS: 01402; 27447; 64447; S2900; 36415; 73560; 80048; 82962; 83735; 85025; 85027; 85610; 85730; 87081; 87426; 96365; 96366; 97110; 97162; 97166; 97530; 97535; 99218; 99251; C1776; C9803; J7120; A4216; G0378; G0379; G0463